=== PATIENT | female | born 1950 ===

== ENCOUNTER 2019-12-25 10:47 | Observation (INO) ==
[2019-12-25] MEDS ORDERED: 0.9 % SODIUM CHLORIDE 1,000 ML IV ONE ×3 (11:12→13:38)
--- NOTE | 2019-12-25 11:17 | Emergency Department Note ---
Weakness HPI General Chief complaint: Weakness Stated complaint: Decreased appetite, Decreased kidney function Time Seen by Provider: 12/25/19 10:56 Source: patient and family Mode of arrival: wheelchair Limitations: no limitations History of Present Illness HPI Narrative: Narrative: Patient is a 69-year-old female comes into the emergency department today with her niece. Patient reports that she has felt dehydrated, dizzy for about 1 week, generalized weakness, and fatigued. She has had weight loss over the last couple of months. She has been seen by her primary care provider, and her niece reports that her recent laboratory work at her PCP showed a decreased kidney function. Patient reports that she does not have any appetite and food does not taste well anymore. She has been drinking 2-3 8 ounce glasses of water a day. Patient reports that she does follow-up with neurologist, Dr. Summers in regards to memory loss. Patient has not had any headaches or confusion. Her niece reports that she is at her baseline mental status. She denies any fevers or chills. She denies any sore throat or dysphasia. She denies chest pain, shortness of breath, dyspnea on exertion, or cough. She has not had any abdominal pain, nausea, vomiting, diarrhea, melena, or hematochezia. Related Data Home Medications Medication Instructions Recorded Confirmed acetaminophen [Tylenol Extra 1,000 mg PO Q4HP PRN 12/25/19 12/25/19 Strength] levothyroxine 75 mcg PO DAILY 12/25/19 12/25/19 loperamide 2 mg PO PRN PRN 12/25/19 12/25/19 loratadine 10 mg PO DAILY PRN 12/25/19 12/25/19 memantine 10 mg PO BID 12/25/19 12/25/19 mirtazapine 15 mg PO HS 12/25/19 12/25/19 venlafaxine 125 mg PO DAILY 12/25/19 12/25/19 Allergies Allergy/AdvReac Type Severity Reaction Status Date / Time No Known Drug Allergies Allergy Verified 12/25/19 10:49 Review of Systems ROS Narrative: Narrative: Constitutional: Reports as per HPI, weakness and weight change; Denies fever and chills Eyes: Denies vision change ENT ED: Denies ear pain, throat pain and dysphagia Cardiovascular: Denies chest pain, palpitations, dyspnea on exertion and syncope Respiratory: Denies shortness of breath, cough and hemoptysis Gastrointestinal: Denies abdominal pain, nausea, vomiting, diarrhea, constipation, hematochezia, melena and hematemesis Genitourinary: Denies dysuria and frequency Musculoskeletal: Denies back pain and joint swelling Integumentary: Denies rash and lesions Neurological: Reports dizziness; Denies headache, weakness, numbness and paresthesias Psychiatric: Denies anxiety and depression Endocrine: Denies fatigue and heat or cold intolerance Hematological/Lymphatic: Denies easy bleeding, easy bruising and lymphadenopathy [facility] Narrative Patient History Narrative: Narrative: Medical/Surgical/Family History All Active Problems (Updated 12/25/19 @ 15:38 by OKSANA Westbrook) Fall (Acute) Contusion, lip (Acute) Contusion of lower limb, left (Acute) Contusion of lower limb, right (Acute) Cognitive dysfunction (Acute) Edema extremities (Acute) Hypothyroidism, acquired (Acute) Anemia (Acute) Acute kidney failure (Acute) Dehydration (Acute) Acute hypokalemia (Acute) Social History Smoking Status: Unknown if ever smoked Exam Narrative Narrative: Narrative: General Limitations: no limitations General appearance: alert, in no apparent distress and thin Head Head: atraumatic and normocephalic Eye Eye: Present normal appearance, PERRL and EOMI; Absent scleral icterus and conjunctival injection ENT ENT: Present normal oropharynx and mucous membranes dry; Absent nasal congestion Neck Neck: Present normal inspection, full ROM and trachea midline; Absent tenderness, lymphadenopathy and thyromegaly Chest Chest: Present normal inspection and symmetric chest wall rise Respiratory Respiratory: Present normal lung sounds bilaterally; Absent respiratory distress, wheezes, stridor, accessory muscle use and prolonged expiratory phase Cardiovascular Cardiovascular: Present regular rate, normal rhythm and systolic murmur; Absent diastolic murmur Adbominal Abdominal: Present soft and tenderness (All quadrants); Absent distention, rebound, rigidity, organomegaly and ascites Extremities Extremities: Present normal inspection, full ROM and normal capillary refill; Absent tenderness, pedal edema, pretibial edema and calf tenderness Back Back: Present normal inspection and full ROM; Absent tenderness Neurological Neurological: Present alert, CN II-XII intact, normal gait and other (Oriented to self and place.) Psychiatric Psychiatric: Present normal affect and normal mood Skin Skin: Present warm, dry and normal color Course Course Course Narrative: 1335 -patient currently drinking fluids at this time and receiving her second liter of normal saline. Bladder scan shows 38 cc in the bladder. She is not able to provide urine sample at this time. Spoke with Dr. Mondragon who is on-call for nephrology today. He will plan on swinging by and seeing the patient in the emergency department later after he is done at [facility]. I have ordered a renal ultrasound to be completed at this time. Patient is in no distress and currently sitting in the room T5. Vital Signs Vital signs: Vital Signs Temperature 98.1 F 12/25/19 10:50 Pulse Rate 65 12/25/19 10:50 Respiratory Rate 18 12/25/19 10:50 Blood Pressure 109/55 12/25/19 10:50 Pulse Oximetry (%) 98 12/25/19 10:50 Temperature 98.1 F 12/25/19 10:50 Pulse Rate 46 L 12/25/19 17:23 Respiratory Rate 18 12/25/19 17:23 Blood Pressure 122/50 12/25/19 17:23 Pulse Oximetry (%) 100 12/25/19 17:23 MDM MDM Narrative Medical decision making narrative: Narrative: Renal ultrasound does not show any major abnormality today. The abdominal x-ray shows normal amount of stool with no fecal impaction or any other abnormality. Patient's laboratory results today show the creatinine level at 1.8 and GFR of 28. Potassium low at 3.1 and replenished the potassium with 40 mEq of oral potassium today. She was given a total of 3 L of normal saline today for hydration. Dr. Mondragon had came to the emergency department and seen the patient today. Dr. Mondragon would like patient to be admitted for further evaluation and monitoring with IV fluid for hydration. Spoke with Dr. Fonseca at 1533, and Dr. Fonseca will accept patient for hospital admission for the acute renal failure and dehydration. Lab Data Lab results reviewed: Yes I reviewed the patient's lab results. Lab results narrative: Reviewed patient's previous laboratory results from December 21, 2019 that was done at [facility]: Creatinine was 2.0, GFR 24.85, BUN 7, AST 50, ALT 29, sodium 136, potassium 3.5, chloride 95, CO2: 22.8, glucose 81, calcium 10.1. TSH 1.588, magnesium 1.9, lipase 27, B12 706, vitamin D 11 which is low, TIBC normal, white blood cells 3.7, hemoglobin 14.3, hematocrit 41.4, platelets 134. Result diagrams: 12/25/19 11:15 12/25/19 11:15 Labs: Lab Results 12/25/19 12/25/19 12/25/19 Range/Units 11:15 11:15 11:15 WBC 4.0 L (4.50-11.00) K/mcL RBC 4.64 (3.59-5.38) M/mcL Hgb 14.3 (11.2-15.7) g/dL Hct 40.8 (34.1-44.9) % MCV 87.9 (80.0-100.0) fL MCH 30.8 (26.0-34.0) pg MCHC 35.0 (31.0-36.0) g/dL RDW 13.4 (11.5-14.5) % Plt Count 136 L (140-440) K/mcL MPV 10.7 H (7.4-10.4) fL Gran % 58.9 (38.0-78.0) % Lymph % (Auto) 30.3 (15.5-49.0) % [place] % (Auto) 9.3 (1.0-12.0) % Eos % (Auto) 1.0 (0.0-7.0) % Baso % (Auto) 0.5 (0.0-2.0) % Gran # 2.33 (1.80-8.00) K/mcL Lymph # (Auto) 1.20 L (1.50-4.80) K/mcL [place] # (Auto) 0.37 (0.10-0.90) K/mcL Eos # (Auto) 0.04 (0.00-0.70) K/mcL Baso # (Auto) 0.02 (0.00-0.30) K/mcL Sodium 134 (133-145) mmol/L Potassium 3.1 L (3.3-5.1) mmol/L Chloride 90 L (96-108) mmol/L Carbon Dioxide 21 L (22-30) mmol/L Anion Gap 23.0 H (8-16) BUN 20 (8-23) mg/dl Creatinine 1.8 H (0.6-1.1) mg/dl GFR Calculation 28 Glucose 78 (70-105) mg/dL Calcium 9.9 (8.6-10.4) mg/dl Total Bilirubin 2.0 H (0.0-1.0) mg/dL AST 50 H (0-37) U/l ALT 25 (0-40) U/l Alkaline Phosphatase 85 (39-117) U/L Total Protein 7.3 (5.9-8.4) gm/dL Albumin 4.5 (3.2-5.2) gm/dL Globulin 2.8 (2.2-3.7) gm/dL Albumin/Globulin Ratio 1.6 (1.0-2.3) Lipase 36 (7-60) U/L Vitamin B12 816.8 (232-1245) pg/ml Urine Color Urine Appearance Urine pH (5.0-9.0) Ur Specific [place] (1.000-1.035) Urine Protein (NEG) mg/dL Urine Glucose (UA) (NEG) mg/dL Urine Ketones (NEG) mg/dL Urine Occult Blood (<0.03) mg/dL Urine Nitrate (NEG) Urine Bilirubin (NEG) mg/dL Urine Urobilinogen (NEG) mg/dL Ur Leukocyte Esterase (NEG) /uL Urine RBC (0-1) /hpf Urine WBC (0-4) /hpf Ur Squamous Epith Cells (0-4) /hpf Urine Bacteria (0) /hpf Hyaline Casts (0-2) /lpf Urine Mucus (0) /hpf Ur Culture Indicated? 12/25/19 Range/Units 14:52 WBC (4.50-11.00) K/mcL RBC (3.59-5.38) M/mcL Hgb (11.2-15.7) g/dL Hct (34.1-44.9) % MCV (80.0-100.0) fL MCH (26.0-34.0) pg MCHC (31.0-36.0) g/dL RDW (11.5-14.5) % Plt Count (140-440) K/mcL MPV (7.4-10.4) fL Gran % (38.0-78.0) % Lymph % (Auto) (15.5-49.0) % [place] % (Auto) (1.0-12.0) % Eos % (Auto) (0.0-7.0) % Baso % (Auto) (0.0-2.0) % Gran # (1.80-8.00) K/mcL Lymph # (Auto) (1.50-4.80) K/mcL [place] # (Auto) (0.10-0.90) K/mcL Eos # (Auto) (0.00-0.70) K/mcL Baso # (Auto) (0.00-0.30) K/mcL Sodium (133-145) mmol/L Potassium (3.3-5.1) mmol/L Chloride (96-108) mmol/L Carbon Dioxide (22-30) mmol/L Anion Gap (8-16) BUN (8-23) mg/dl Creatinine (0.6-1.1) mg/dl GFR Calculation Glucose (70-105) mg/dL Calcium (8.6-10.4) mg/dl Total Bilirubin (0.0-1.0) mg/dL AST (0-37) U/l ALT (0-40) U/l Alkaline Phosphatase (39-117) U/L Total Protein (5.9-8.4) gm/dL Albumin (3.2-5.2) gm/dL Globulin (2.2-3.7) gm/dL Albumin/Globulin Ratio (1.0-2.3) Lipase (7-60) U/L Vitamin B12 (232-1245) pg/ml Urine Color Yellow Urine Appearance Clear Urine pH 6.0 (5.0-9.0) Ur Specific [place] 1.011 (1.000-1.035) Urine Protein 30 A (NEG) mg/dL Urine Glucose (UA) Negative (NEG) mg/dL Urine Ketones 20 A (NEG) mg/dL Urine Occult Blood Neg (<0.03) mg/dL Urine Nitrate Neg (NEG) Urine Bilirubin Neg (NEG) mg/dL Urine Urobilinogen Neg (NEG) mg/dL Ur Leukocyte Esterase 25 A (NEG) /uL Urine RBC 1 (0-1) /hpf Urine WBC 4 (0-4) /hpf Ur Squamous Epith Cells 1 (0-4) /hpf Urine Bacteria Few A (0) /hpf Hyaline Casts 15 H (0-2) /lpf Urine Mucus Few (0) /hpf Ur Culture Indicated? Yes EKG Data EKG #1: EKG attestation: Yes There are no EKG findings of acute coronary syndrome EKG shows normal: sinus rhythm Rate: normal Discharge Plan Patient/Caregiver Discharge Instructions Pt seen by GAME ROOM ATTENDANT/PA only: No Clinical Impression: Dehydration, Acute hypokalemia Acute kidney failure Qualifiers: Acute renal failure type: unspecified Qualified Code(s): N17.9 - Acute kidney failure, unspecified Patient Disposition: Xfer As Inpt ([facility]) Condition: Fair Discharge Date/Time: 12/25/19 17:27 Discharge Comment: admitted observation status
[2019-12-25 12:22] LABS: Basophils # (Auto) 0.02 K/mcL (0.00-0.30); Basophils % (Auto) 0.5 % (0.0-2.0); Eosinophils # (Auto) 0.04 K/mcL (0.00-0.70); Granulocytes % (Auto) 58.9 % (38.0-78.0); Hematocrit 40.8 % (34.1-44.9); Hemoglobin 14.3 g/dL (11.2-15.7); Lymphocytes % (Auto) 30.3 % (15.5-49.0); Mean Cell Volume 87.9 fL (80.0-100.0); Mean Platelet Volume 10.7 fL (7.4-10.4); Monocytes # (Auto) 0.37 K/mcL (0.10-0.90); Monocytes % (Auto) 9.3 % (1.0-12.0); Platelet Count 136 K/mcL (140-440); RBC 4.64 M/mcL (3.59-5.38); Red Cell Distribution Width 13.4 % (11.5-14.5)
[2019-12-25 12:50] LABS: ALT/SGPT 25 U/l (0-40); AST/SGOT 50 U/l (0-37); Albumin 4.5 gm/dL (3.2-5.2); Albumin/Globulin Ratio 1.6 (1.0-2.3); Alkaline Phosphatase 85 U/L (39-117); Blood Urea Nitrogen 20 mg/dl (8-23); Calcium 9.9 mg/dl (8.6-10.4); Carbon Dioxide 21 mmol/L (22-30); Globulin 2.8 gm/dL (2.2-3.7); Glomerular Filtration Rate 28; Glucose 78 mg/dL (70-105)
[2019-12-25 12:51] LABS: Chloride 90 mmol/L (96-108)
[2019-12-25] MEDS ORDERED: POTASSIUM CHLORIDE 20 MEQ TABLET PO ONE (12:56)
--- NOTE | 2019-12-25 15:17 | XRay Report ---
HISTORY: Abdominal pain, decreased appetite, decreased renal function FINDINGS: There is air in nondilated stomach, small and large intestine. There is no evidence of fecal impaction or bowel obstruction. No free intra-abdominal air is present. There is no apparent soft tissue mass or abnormal calcification. Arthritis is seen in the spine. There is an old mild compression fracture involving the superior endplate of L1. IMPRESSION: Normal exam Interpreted and Authenticated by: Sai Vazquez 12/25/19
--- NOTE | 2019-12-25 15:19 | Ultrasound Report ---
History: Acute kidney injury FINDINGS: The right kidney measures 4.2 x 4.7 x 10.2 cm left measures 4.1 x 4.7 x 10.4 cm. The cortex is normal thickness and echogenicity bilaterally. There is no evidence of a mass, cyst, calculus or hydronephrosis in either kidney. Doppler shows flow urine through the left ureter into the bladder but we were unable to document flow in the right side. The patient had not been well hydrated prior to the exam. Before voiding the bladder contained 77 cc of urine and has a smooth wall with no intraluminal filling defects. The patient was unable to void. IMPRESSION: Anatomically normal kidneys Diminished urine output on the right side Interpreted and Authenticated by: Sai Vazquez 12/25/19
--- NOTE | 2019-12-25 15:31 | Internal Med History&Physical ---
HPI History of Present Illness Patient information: Note initiated : 12/25/19 at 3:27 pm Service Date, if different from initiated Date: [12/25/2019] Patient: Christina Lopez a 69 y/o F admitted on for Decreased appetite, Decreased kidney function. Chief Complaint: [Dehdration and ARF] History of present illness: Ms. Lopez is a 69 year old F with a PMHx of HTN, Hypothyroidism and dementia who was brought to the ED by her neice (Radha) after months of failure to thrive. The patient lives at home with a caregiver who checks in on her but the patient is to the point that she is no longer eating or drinking such that she is now dehyrated with ARF. This was noted by recent blood work at [facility] [place] [place] and confirmed here. SCr baseline was 0.8 mg/dl in Apr 2017 with a U/A showing a concentrated sample with 2+ proteinuria. Currently her serum creatinine is in the 1.8-2.2 range shows for the past 48 hours in the setting of poor p.o. intake. While this is significantly worse than her prior GFR, I doubt this is a significant component to her failure to thrive and altered mentation. Despite being bradycardic and with signs of obvious dementia her TSH level is currently normal. She will be hospitalized for IV volume repletion as this may be a component of her decline in GFR as well as electrolyte replacement and further work-up to see if there is a reversible component to her dementia beyond hypothyroidism and probable depression in the elderly. It is unlikely that this patient will be able to be discharged to the home setting and should be considered for placement in a penitentiary as she is no longer safe to live at home according to my history and that of information provided by both the patient and her niece. Review of Systems ROS unobtainable: due to mental status All systems: reviewed and no additional remarkable complaints except as stated Constitutional Constitutional: Present anorexia, fatigue, lethargy and weakness; Absent fever(s) EENT Eyes: Present as per HPI Cardiovascular Cardiovascular: Present slow heart rate; Absent chest pain, leg edema, orthopnea and pedal edema Respiratory Respiratory: Absent cough, dyspnea, hemoptysis and wheezing Gastrointestinal Gastrointestinal: Present as per HPI; Absent abdominal pain, diarrhea, dysphagia, loose stools, nausea and vomiting Genitourinary Genitourinary: Present as per HPI Musculoskeletal Musculoskeletal: Present as per HPI Integumentary Integumentary: Present as per HPI and dry skin Neurological Neurological: Present as per HPI, confusion, memory loss and weakness Psychiatric Psychiatric: Present as per HPI, abnormal sleep pattern, confusion, depression, difficulty concentrating, hopelessness and memory loss Endocrine Endocrine: Present cold intolerance Hematologic/Lymphatic Hematologic/Lymphatic: Present as per HPI Allergic/Immunologic Allergic/Immunologic: Present as per HPI PFSH PFSH Social History (Updated 12/25/19 @ 15:58 by Ras Fonseca DO) smoking status: Never smoker additional history: Past medical history: Cognitive decline versus dementia, follows with Dr. Summers Past surgical history: None Family: Mother had colon cancer and some psychiatric issues Father was healthy other than prostate cancer Social history: Patient denies tobacco she has 1 glass of wine a night Lives by herself with family coming in to help and care for her. MEDS/ALLERGIES Home Medications and Allergies Home Medications Medication Instructions Recorded Confirmed Type acetaminophen [Tylenol Extra 1,000 mg PO Q4HP PRN 12/25/19 12/25/19 History Strength] levothyroxine 75 mcg PO DAILY 12/25/19 12/25/19 History loperamide 2 mg PO PRN PRN 12/25/19 12/25/19 History loratadine 10 mg PO DAILY PRN 12/25/19 12/25/19 History memantine 10 mg PO BID 12/25/19 12/25/19 History mirtazapine 15 mg PO HS 12/25/19 12/25/19 History venlafaxine 225 mg PO DAILY 12/25/19 12/25/19 History Allergies Allergy/AdvReac Type Severity Reaction Status Date / Time No Known Drug Allergies Allergy Verified 12/25/19 10:49 EXAM Constitutional Vitals: Temp Pulse Resp BP Pulse Ox 36.7 C 46 L 18 115/47 100 12/25/19 10:50 12/25/19 15:01 12/25/19 10:50 12/25/19 15:01 12/25/19 15:01 Head Head exam: Present atraumatic and normocephalic Eye Eye exam: Present EOMI, normal appearance and PERRL Pupils: Present PERRL ENT ENT exam: Present mucous membranes dry Neck Neck exam: Present full ROM and normal inspection; Absent thyromegaly Respiratory Respiratory exam: Present normal respiratory exam and CTAB Cardiovascular Cardiovascular exam: Present normal rate and rhythm, bradycardia, +S1 and +S2; A bsent gallop, JVD and rubs GI/Abdominal GI/Abdominal exam: Present normal bowel sounds and soft; Absent bruit Rectal Rectal exam: Present deferred Extremities Exam Extremities exam: Present full ROM, normal inspection and neurovascular intact; Absent calf tenderness, pedal edema and tenderness Back Exam Back exam: Absent CVA tenderness (L), CVA tenderness (R) and tenderness Neurological Exam Neurological exam: Present alert, CN II-XII intact and motor sensory deficit; Absent oriented X3 Expanded Neurological Exam Neurological exam: Present memory loss-recent event; Absent expressive aphasia and memory loss-remote event Patient oriented to: Present person Psychiatric Psychiatric exam: Present depressed and flat affect Expanded Psychiatric Exam Focused psych exam: Present loose associations and perseverating Skin Skin exam: Present dry DATA Data Completed and Pending Labs on day of discharge: Labs from last 24 hours 12/25/19 12/25/19 12/25/19 14:52 11:15 11:15 WBC RBC Hgb Hct MCV MCH MCHC RDW Plt Count MPV Gran % Lymph % (Auto) [place] % (Auto) Eos % (Auto) Baso % (Auto) Gran # Lymph # (Auto) [place] # (Auto) Eos # (Auto) Baso # (Auto) Sodium 134 Potassium 3.1 L Chloride 90 L Carbon Dioxide 21 L Anion Gap 23.0 H BUN 20 Creatinine 1.8 H GFR Calculation 28 Glucose 78 Calcium 9.9 Total Bilirubin 2.0 H AST 50 H ALT 25 Alkaline Phosphatase 85 Total Protein 7.3 Albumin 4.5 Globulin 2.8 Albumin/Globulin Ratio 1.6 Lipase 36 Vitamin B12 816.8 Urine Color Pending Urine Appearance Pending Urine pH Pending Ur Specific [place] Pending Urine Protein Pending Urine Glucose (UA) Pending Urine Ketones Pending Urine Occult Blood Pending Urine Nitrate Pending Urine Bilirubin Pending Urine Urobilinogen Pending Ur Leukocyte Esterase Pending 12/25/19 11:15 WBC 4.0 L RBC 4.64 Hgb 14.3 Hct 40.8 MCV 87.9 MCH 30.8 MCHC 35.0 RDW 13.4 Plt Count 136 L MPV 10.7 H Gran % 58.9 Lymph % (Auto) 30.3 [place] % (Auto) 9.3 Eos % (Auto) 1.0 Baso % (Auto) 0.5 Gran # 2.33 Lymph # (Auto) 1.20 L [place] # (Auto) 0.37 Eos # (Auto) 0.04 Baso # (Auto) 0.02 Sodium Potassium Chloride Carbon Dioxide Anion Gap BUN Creatinine GFR Calculation Glucose Calcium Total Bilirubin AST ALT Alkaline Phosphatase Total Protein Albumin Globulin Albumin/Globulin Ratio Lipase Vitamin B12 Urine Color Urine Appearance Urine pH Ur Specific [place] Urine Protein Urine Glucose (UA) Urine Ketones Urine Occult Blood Urine Nitrate Urine Bilirubin Urine Urobilinogen Ur Leukocyte Esterase A/P Assessment and plan (1) Acute kidney failure: Assessment and plan: 1. U/S unremarkable 2. Check FeNa and trend SCr Status: Acute Comment: Presumed volume depletion +/- renal hypoperfusion due to bradycardia and decreased CO Qualifiers: Acute renal failure type: unspecified Qualified Code(s): N17.9 - Acute kidney failure, unspecified (2) Bradycardia with 41-50 beats per minute: Assessment and plan: 1. Avoid cholinergic Rx for dementia 2. Check FeNa 3. If no increase in HR, may need pacemaker arline if FeNa low as both GFR and mentation may be due to decreased organ perfusion. 4. TSH is WNL so doubt hypothyroidism Status: Chronic (3) Acute hypokalemia: Assessment and plan: 1. Check TTKG and Mag level Status: Acute Comment: Assume poor po intake, no Hx of GI K losses (4) Cognitive dysfunction: Status: Chronic Comment: Progressive dementia with hypothyroidism on replacemt therapy and nl B12 levels. Brasycardia may have a causative role. Will likely need terminologist placement for safety. Narrative A/P Narrative: Narrative: 1. ARF in setting of dehydration, bradycardia and marginal BP * Normal Renal U/S * Review urinalysis * Due to age check SPEP, UPEP and IF * Hydrate * Trend SCr 2. Hypokalemia * Check serum Mg * Check TTKG * PO repletion 3. Bradycardia * No "easy fix" as not on Cholinergic Rx for dementia * If FeNa is low, this argues for renal hypoperfusion and opens the possibilty of [employer] hypoperfusion as well * Elective PPM??? 4. Dementia * Labs for dementia * Decrease Psychoactive Rx with the exception of NMDA antgonist. Time Spent With Patient Time: Total time spent is greater than 50% in coordination of care (as documented) at patient's floor/unit and/or counseling patient: Total time spent with greater than 50% in coordination of care (as documented) at patient's floor/unit and/or counseling patient:: Greater than 35 minutes
[2019-12-25 15:52] LABS: Appearance,Urine CLEAR; Bacteria,Urine FEW /hpf (0); Bilirubin,Urine NEG (NEG); Color,Urine YELLOW; Culture Indicated,Urine YES; Glucose,Urine (UA) NEGATIVE (NEG); Ketones,Urine 20 mg/dL (NEG); Leukocyte Esterase,Urine 25 /uL (NEG); Mucus,Urine FEW /hpf (0); Nitrate,Urine NEG (NEG); Protein,Urine 30 mg/dL (NEG); Specific Gravity,Urine 1.011 (1.000-1.035); Urine Blood NEG mg/dL (<0.03); Urine Hyaline Cast 15 /lpf (0-2); Urine RBC 1 /hpf (0-1); Urine Squamous Epithelial Cell 1 /hpf (0-4); Urine WBC 4 /hpf (0-4); Urobilinogen,Urine NEG (NEG)
--- NOTE | 2019-12-25 16:01 | Internal Med History&Physical ---
HPI History of Present Illness Patient information: Note initiated : 12/25/19 at 3:53 pm Service Date, if different from initiated Date: [] Patient: Christina Lopez a 69 y/o F admitted on for Decreased appetite, Decreased kidney function. Chief Complaint: [] History of present illness: Ms. Lopez is a 69 year old F Presents the ED with her knee for failure to thrive. Patient was at [facility] independent living for 2 and half years and then earlier this year because of memory issues they wanted to move her to the other side for closer watch however her niece says this was with a nonfunctional patients and they did not want to do this. Patient then went home and live by herself but did have family to come and help her. She seemed to be doing okay with family support till about 3 weeks ago where she seems to have been in decline. She is had decreased interest in any activity, she had decreased appetite, and family has been trying to get in her into [facility] assisted living facility but that has been a prolonged process. Over the past several days she is becoming more weak and lightheaded and more difficult to take care of her. She had kidney function testing which showed acute kidney injury. In the ED she was evaluated and found to have a creatinine of 1.8. Hypochloremia and hypokalemia. Quality Lab Technician evaluated the patient in the ED as well. Patient given several liters of fluid. Ultrasound unremarkable. Urinalysis pending. UTI several weeks ago. Review of Systems: Positive as above. Denies headache/fever/chills/nausea/vomiting/chest or abdominal pain/cough/dyspnea/diarrhea. Remaining 10 point review of system reviewed negative PFSH PFS Social History (Updated 12/25/19 @ 15:58 by Ras Fonseca DO) smoking status: Unknown if ever smoked additional history: Past medical history: Cognitive decline versus dementia, follows with Dr. Summers Past surgical history: None Family: Mother had colon cancer and some psychiatric issues Father was healthy other than prostate cancer Social history: Patient denies tobacco she has 1 glass of wine a night Lives by herself with family coming in to help and care for her. MEDS/ALLERGIES Home Medications and Allergies Home Medications Medication Instructions Recorded Confirmed Type acetaminophen [Tylenol Extra 1,000 mg PO Q4HP PRN 12/25/19 12/25/19 History Strength] levothyroxine 75 mcg PO DAILY 12/25/19 12/25/19 History loperamide 2 mg PO PRN PRN 12/25/19 12/25/19 History loratadine 10 mg PO DAILY PRN 12/25/19 12/25/19 History memantine 10 mg PO BID 12/25/19 12/25/19 History mirtazapine 15 mg PO HS 12/25/19 12/25/19 History venlafaxine 125 mg PO DAILY 12/25/19 12/25/19 History Allergies Allergy/AdvReac Type Severity Reaction Status Date / Time No Known Drug Allergies Allergy Verified 12/25/19 10:49 EXAM Constitutional Vitals: Temp Pulse Resp BP Pulse Ox 98.1 F 46 L 18 119/60 100 12/25/19 10:50 12/25/19 15:01 12/25/19 10:50 12/25/19 15:31 12/25/19 15:01 Exam: General: Alert, Awake, No acute Distress Eyes/N/T: EOMI, PERRL, dry MM Head/Neck: neck supple, normocephalic atraumatic CV: RRR, No murmurs, normal s1/s2 Pulm: Clear b/l, no wheezing/rhonchi/rales Abd: soft, nontender, +BS x4 Ext: no clubbing/cyanosis/edema Neuro: Alert, no focal deficits, moves all extremities, CN 2-12 grossly intact, symmetrical strength b/l upper/lower, sensations intact b/l upper/lower Skin: warm/dry DATA Data Completed and Pending Labs on day of discharge: Labs from last 24 hours 12/25/19 12/25/19 12/25/19 14:52 11:15 11:15 WBC RBC Hgb Hct MCV MCH MCHC RDW Plt Count MPV Gran % Lymph % (Auto) [place] % (Auto) Eos % (Auto) Baso % (Auto) Gran # Lymph # (Auto) [place] # (Auto) Eos # (Auto) Baso # (Auto) Sodium 134 Potassium 3.1 L Chloride 90 L Carbon Dioxide 21 L Anion Gap 23.0 H BUN 20 Creatinine 1.8 H GFR Calculation 28 Glucose 78 Calcium 9.9 Total Bilirubin 2.0 H AST 50 H ALT 25 Alkaline Phosphatase 85 Total Protein 7.3 Albumin 4.5 Globulin 2.8 Albumin/Globulin Ratio 1.6 Lipase 36 Vitamin B12 816.8 Urine Color Yellow Urine Appearance Clear Urine pH 6.0 Ur Specific [place] 1.011 Urine Protein 30 A Urine Glucose (UA) Negative Urine Ketones 20 A Urine Occult Blood Neg Urine Nitrate Neg Urine Bilirubin Neg Urine Urobilinogen Neg Ur Leukocyte Esterase 25 A Urine RBC 1 Urine WBC 4 Ur Squamous Epith Cells 1 Urine Bacteria Few A Hyaline Casts 15 H Urine Mucus Few Ur Culture Indicated? Yes 12/25/19 11:15 WBC 4.0 L RBC 4.64 Hgb 14.3 Hct 40.8 MCV 87.9 MCH 30.8 MCHC 35.0 RDW 13.4 Plt Count 136 L MPV 10.7 H Gran % 58.9 Lymph % (Auto) 30.3 [place] % (Auto) 9.3 Eos % (Auto) 1.0 Baso % (Auto) 0.5 Gran # 2.33 Lymph # (Auto) 1.20 L [place] # (Auto) 0.37 Eos # (Auto) 0.04 Baso # (Auto) 0.02 Sodium Potassium Chloride Carbon Dioxide Anion Gap BUN Creatinine GFR Calculation Glucose Calcium Total Bilirubin AST ALT Alkaline Phosphatase Total Protein Albumin Globulin Albumin/Globulin Ratio Lipase Vitamin B12 Urine Color Urine Appearance Urine pH Ur Specific [place] Urine Protein Urine Glucose (UA) Urine Ketones Urine Occult Blood Urine Nitrate Urine Bilirubin Urine Urobilinogen Ur Leukocyte Esterase Urine RBC Urine WBC Ur Squamous Epith Cells Urine Bacteria Hyaline Casts Urine Mucus Ur Culture Indicated? A/P Narrative A/P Narrative: A: *JENNIFER: *Hypokalemia/Hypochloremia: *FTT/generalized weakness/deconditioning: -Family has been trying to get her into an [facility] recently *Cognitive decline versus dementia: Follows with Dr. Summers *Hypothyroidism: *Depression/Anxiety: Effexor * P: -IVF's -Nephrology following -check TSH -Electrolyte replacement as needed -monitor uop -PT/OT -CM for placement -ppx: lovenox DNR Time Spent With Patient Time: Total time spent is greater than 50% in coordination of care (as documented) at patient's floor/unit and/or counseling patient:
[2019-12-25] MEDS ORDERED: SENNOSIDES 1 TABLET PO PRN (17:20)
[2019-12-25] MEDS ORDERED: ONDANSETRON 4 MG/2 ML VIAL IV PRN (17:20)
[2019-12-25] MEDS ORDERED: POTASSIUM CHLORIDE 20 MEQ TABLET PO PRN (17:20)
[2019-12-25] MEDS ORDERED: MAGNESIUM SULFATE 2 GM/50 ML BAG IV PRN (17:20)
[2019-12-25] MEDS ORDERED: POLYETHYLENE GLYCOL 3350 17 GM PACKET PO PRN (17:20)
[2019-12-25] MEDS ORDERED: LORATADINE 10 MG PO PRN (17:20)
[2019-12-25] MEDS ORDERED: POTASSIUM CHLORIDE 40 MEQ in DEXTROSE 5% IN WATER 500 ML IV PRN (17:20)
[2019-12-25] MEDS ORDERED: IPRATROPIUM/ALBUTEROL 3 ML AMPUL.NEB NEB PRN (17:20)
[2019-12-25] MEDS ORDERED: LOPERAMIDE (PP) 2MG TABLET (#12) PO PRN (17:20)
[2019-12-25] MEDS ORDERED: ACETAMINOPHEN 500 MG TABLET PO PRN (17:20)
[2019-12-25] MEDS: 0.9 % SODIUM CHLORIDE 1,000 ML IV SCH (17:50)
[2019-12-25] MEDS ORDERED: LOPERAMIDE 2 MG CAPSULE PO PRN (18:28)
[2019-12-25] MEDS ORDERED: LORATADINE 10 MG TABLET PO PRN (18:30)
[2019-12-25] MEDS ORDERED: MIRTAZAPINE 15 MG TABLET PO SCH (21:00)
[2019-12-25] MEDS: DOCUSATE SODIUM 100 MG CAPSULE PO SCH (21:14)
[2019-12-25] MEDS: MEMANTINE 10 MG TABLET PO SCH (21:14)
[2019-12-25] MEDS: 0.9 % SODIUM CHLORIDE 10 ML SYRINGE IV SCH (21:16)
[2019-12-26 00:25] LABS: Potassium,Urine Random 7.8 mmol/L
[2019-12-26] MEDS: 0.9 % SODIUM CHLORIDE 10 ML SYRINGE IV SCH ×3 (04:13→20:53)
[2019-12-26] MEDS: LEVOTHYROXINE 75 MCG TABLET PO SCH (07:04)
[2019-12-26 07:19] LABS: Basophils # (Auto) 0.02 K/mcL (0.00-0.30); Basophils % (Auto) 0.6 % (0.0-2.0); Eosinophils # (Auto) 0.03 K/mcL (0.00-0.70); Eosinophils % (Auto) 0.9 % (0.0-7.0); Granulocytes % (Auto) 64.9 % (38.0-78.0); Hematocrit 36.8 % (34.1-44.9); Hemoglobin 12.4 g/dL (11.2-15.7); Lymphocytes # (Auto) 0.76 K/mcL (1.50-4.80); Lymphocytes % (Auto) 23.9 % (15.5-49.0); Mean Cell Volume 90.2 fL (80.0-100.0); Mean Corpuscular HGB Conc 33.7 g/dL (31.0-36.0); Mean Platelet Volume 9.9 fL (7.4-10.4); Monocytes # (Auto) 0.31 K/mcL (0.10-0.90); Monocytes % (Auto) 9.7 % (1.0-12.0); Platelet Count 99 K/mcL (140-440); RBC 4.08 M/mcL (3.59-5.38); Red Cell Distribution Width 13.7 % (11.5-14.5); WBC 3.2 K/mcL (4.50-11.00)
--- NOTE | 2019-12-26 07:27 | Internal Med Progress Note ---
SUBJECTIVE Subjective Patient information: Note initiated : 12/26/19 at 7:24 am Service Date, if different from initiated Date: [] Patient: Christina Lopez a 69 y/o F admitted on 12/25/19 for Decreased appetite, Decreased kidney function. Chief Complaint: [] Interval history: Ms. Lopez is a 69 year old F Presents the ED with her knee for failure to thrive. Patient was at [facility] independent living for 2 and half years and then earlier this year because of memory issues they wanted to move her to the other side for closer watch however her niece says this was with a nonfunctional patients and they did not want to do this. Patient then went home and live by herself but did have family to come and help her. She seemed to be doing okay with family support till about 3 weeks ago where she seems to have been in decline. She is had decreased interest in any activity, she had decreased appetite, and family has been trying to get in her into [facility] assisted living facility but that has been a prolonged process. Over the past several days she is becoming more weak and lightheaded and more difficult to take care of her. She had kidney function testing which showed acute kidney injury. In the ED she was evaluated and found to have a creatinine of 1.8. Hypochloremia and hypokalemia. Brake Tester evaluated the patient in the ED as well. Patient given several liters of fluid. Ultrasound unremarkable. Urinalysis pending. UTI several weeks ago. 7/6 Slept well. Weakness improving some. No other complaints. Creatinine im proving. Review of Systems: denies headache/fever/chills/nausea/vomiting/chest or abdominal pain/co ugh/dyspnea/diarrhea. Otherwise see above. Constitutional Vitals: Vital Signs Temp Pulse Resp BP Pulse Ox 98.5 F 53 L 18 99/54 99 12/26/19 07:12 12/26/19 07:12 12/26/19 07:12 12/26/19 07:12 12/26/19 07:12 Period Temp Pulse Resp BP Sys/Gray Pulse Ox Last 24 Hr 97.3 F-99.4 F 42-65 16-18 99-128/47-60 98-100 Intake and Output 12/25/19 12/26/19 12/26/19 21:59 05:59 13:59 Intake Total 1000 150 Output Total 400 Balance 1000 -250 Weight 54.119 kg Intake & Output: Intake & Output 12/25/19 12/26/19 12/26/19 21:59 05:59 13:59 Intake Total 1000 150 Output Total 400 Balance 1000 -250 Weight 54.119 kg Intake: IV 1000 Sodium Chloride 0.9% 1,000 ml @ 1000 Wide Open IV BOLUS ONE Rx#: [id number] Oral 150 Output: Void Amount 400 Other: Urine Appearance Clear Urine Color Dark Yellow Stool Size Small Stool Color Brown Stool Consistency Soft # Voids 2 # Bowel Movements 1 Exam: General: Alert, Awake, No acute Distress Eyes/N/T: EOMI, Head/Neck: neck supple, CV: RRR, No murmurs, Pulm: Clear b/l, no wheezing/rhonchi/rales Abd: soft, nontender, +BS x4 Ext: no clubbing/cyanosis/edema Neuro: Alert, no focal deficits, moves all extremities, Skin: warm/dry OBJ DATA Labs CBC & Chem 7: 12/26/19 06:25 12/26/19 06:25 Labs: Abnormal Lab Results 12/26/19 12/25/19 12/25/19 06:25 14:52 11:15 WBC 3.2 L Plt Count 99 L MPV Lymph # (Auto) 0.76 L Potassium 3.1 L Chloride 90 L Carbon Dioxide 21 L Anion Gap 23.0 H Creatinine 1.8 H Total Bilirubin 2.0 H AST 50 H Urine Protein 30 A Urine Ketones 20 A Ur Leukocyte Esterase 25 A Urine Bacteria Few A Hyaline Casts 15 H 12/25/19 11:15 WBC 4.0 L Plt Count 136 L MPV 10.7 H Lymph # (Auto) 1.20 L Potassium Chloride Carbon Dioxide Anion Gap Creatinine Total Bilirubin AST Urine Protein Urine Ketones Ur Leukocyte Esterase Urine Bacteria Hyaline Casts Meds: Medications Acetaminophen (Tylenol) 1,000 mg PO Q4HP PRN; Protocol PRN Reason: Pain, Moderate Albuterol/Ipratropium (Duoneb) 3 ml NEB Q4HP PRN PRN Reason: Shortness Of Breath Docusate Sodium (Colace) 100 mg PO BID [facility] Last Admin: 12/25/19 21:14 Dose: Not Given Documented by: Enoxaparin Sodium (Lovenox) 30 mg SQ DAILY [facility] Potassium Chloride 40 meq/ (Dextrose) 520 mls @ 130 mls/hr IV UD PRN PRN Reason: Potassium < 3 Magnesium Sulfate (Magnesium Sulfate) 2 gm in 50 mls @ 50 mls/hr IV UD PRN PRN Reason: Magnesium </= 1.6 Sodium Chloride (Sodium Chloride 0.9%) 1,000 mls @ 75 mls/hr IV .[id number] [facility] Stop: 12/26/19 19:59 Last Admin: 12/25/19 17:50 Dose: 75 mls/hr Documented by: Levothyroxine Sodium (Synthroid) 75 mcg PO ACB [facility] Last Admin: 12/26/19 07:04 Dose: 75 mcg Documented by: Memantine (Namenda) 5 mg PO BID [facility] Last Admin: 12/25/19 21:14 Dose: 5 mg Documented by: Mirtazapine (Remeron) 7.5 mg PO HS [facility] Ondansetron HCl (Zofran) 4 mg IV Q4HP PRN PRN Reason: Nausea And Vomiting Polyethylene Glycol (Miralax) 17 gm PO DAILYP PRN PRN Reason: Constipation Potassium Chloride (Kdur) 40 meq PO UD PRN PRN Reason: Potassium < 3 Senna (Senokot) 2 tab PO DAILYP PRN PRN Reason: Constipation Sodium Chloride (Saline Flush) 10 ml IV Q8 [facility] Last Admin: 12/26/19 04:13 Dose: Not Given Documented by: Venlafaxine HCl (Effexor Xr) 75 mg PO DAILY [facility] A/P Narrative A/P Narrative: A: *JENNIFER: prerenal -improving *Hypokalemia/Hypochloremia: improving *FTT/generalized weakness/deconditioning: -Family has been trying to get her into an [facility] recently *Cognitive Impairment vs dementia: Follows with Dr. Summers *Hypothyroidism: tsh wnl *Depression/Anxiety: Effexor * P: -IVF's -Nephrology following -Electrolyte replacement as needed -monitor uop -PT/OT -CM for placement -obs status -ppx: lovenox DNR Time Spent With Patient Time: Total time spent is greater than 50% in coordination of care (as documented) at patient's floor/unit and/or counseling patient: QUALITY VTE Deep Vein Thrombosis/Pulmonary Embolism Present on Admission: No
[2019-12-26 07:39] LABS: ALT/SGPT 19 U/l (0-40); AST/SGOT 39 U/l (0-37); Albumin 3.3 gm/dL (3.2-5.2); Alkaline Phosphatase 64 U/L (39-117); Bilirubin,Direct 0.6 mg/dL (0.0-0.3); Bilirubin,Total 1.4 mg/dL (0.0-1.0); Blood Urea Nitrogen 13 mg/dl (8-23); Calcium 8.4 mg/dl (8.6-10.4); Carbon Dioxide 17 mmol/L (22-30); Glucose 56 mg/dL (70-105); Lactate Dehydrogenase 137 U/L (94-250); Phosphorous 2.5 mg/dL (2.7-4.5); Triglycerides 99 mg/dl (<150); Uric Acid 8.2 mg/dL (2.5-8.0)
[2019-12-26 07:41] LABS: Albumin/Globulin Ratio 1.7 (1.0-2.3); Chloride 103 mmol/L (96-108); Glomerular Filtration Rate 39
[2019-12-26 07:54] LABS: Folate 4.8 ng/mL (4.2-19.9)
[2019-12-26] MEDS ORDERED: VENLAFAXINE 37.5 MG TAB.ER.24H PO SCH (09:00)
--- NOTE | 2019-12-26 09:29 | Nephrology Progress Note ---
SUBJECTIVE Subjective Patient information: Note initiated : 12/26/19 at 9:22 am Service Date, if different from initiated Date: [] Patient: Christina Lopez 69 y/o F admitted on 12/25/19 for Decreased appetite, Decreased kidney function. Chief Complaint: [] Interval history: Narrative: Scr trending down. UOP noted. BP 99/54-120s/50s. bradycardia persists. I/O 3L/ 400cc Constitutional Vitals: Vital Signs Temp Pulse Resp BP Pulse Ox 36.9 C 53 L 18 99/54 99 12/26/19 07:12 12/26/19 07:12 12/26/19 07:12 12/26/19 07:12 12/26/19 07:12 Period Temp Pulse Resp BP Sys/Gray Pulse Ox Last 24 Hr 36.3 C-37.4 C 42-65 16-18 99-128/47-60 98-100 Intake and Output 12/25/19 12/26/19 12/26/19 21:59 05:59 13:59 Intake Total 1000 150 Output Total 400 Balance 1000 -250 Weight 54.119 kg Intake & Output: Intake & Output 12/25/19 12/26/19 12/26/19 21:59 05:59 13:59 Intake Total 1000 150 Output Total 400 Balance 1000 -250 Weight 54.119 kg Intake: IV 1000 Sodium Chloride 0.9% 1,000 ml @ 1000 Wide Open IV BOLUS ONE Rx#: [id number] Oral 150 Output: Void Amount 400 Other: Urine Appearance Clear Urine Color Dark Yellow Stool Size Small Stool Color Brown Stool Consistency Soft # Voids 2 # Bowel Movements 1 Head Head exam: Present atraumatic and normal inspection Additional findings Additional findings: HEENT: nc, at, non icteric sclerae reps: on room air, non labored respirations, CTAB cardiovasc RRR, present peripheral puises, no edema neuro: alert, clear speech A/P Assessment and plan (1) JENNIFER (acute kidney injury): Status: Acute Narrative A/P Narrative: SCR down to 1.4. It was 1.8 on the day of admission 12/25/2019. Uncertain baseline as the SCR available was 0.8 in 2017. 12/25/2019UA positive protein, ketones, 15 hyaline casts. Urine osmolality 147, urine random potassium 7.8. The patient had proteinuria in 2017 12/25/2019 PARK, SSA, anti-Taylor, scleroderma, C3, C4 pending. 07/11/2019 renal ultrasound R 10.2, L 10.4. Cortex normal thickness and echogenicity. Before voiding 77 cc of urine in the bladder, patient was unable to void. *continue strict I/O, avoid nephrotoxins *can use LR for maintenance lfuid 1ml/kg/hr *am rfp acid-base Bicarbonate 17. within the limitation of no blood gas, metabolic acidosis 2/2 JENNIFER bone-mineral metabolism Calcium 8.4, phosphorus 2.5 (mild hypophosphatemia), magnesium within lab reference range 1.7. *Hopefully phosphorus can improve with increased p.o. intake. If not better by tomorrow, we will replete BUN/ K 13/3.7 hematologic hemoglobin 12.4, within lab reference range. Leukopenia/[id number]-[id number]-ap/management per primary team Folate 4.8, vitamin B12 706 *Start folic acid replacement Time Spent With Patient Time: Total time spent is greater than 50% in coordination of care (as documented) at patient's floor/unit and/or counseling patient: Total time spent with greater than 50% in coordination of care (as documented) at patient's floor/unit and/or counseling patient:: 25 - 35 minutes
[2019-12-26] MEDS: VENLAFAXINE 75 MG CAP.XL.24H PO SCH (09:46)
[2019-12-26] MEDS: MEMANTINE 10 MG TABLET PO SCH ×2 (09:46→20:52)
[2019-12-26] MEDS: 0.9 % SODIUM CHLORIDE 1,000 ML IV SCH (09:46)
[2019-12-26] MEDS: ENOXAPARIN 30 MG/0.3 ML SYRINGE SQ SCH (09:46)
[2019-12-26] MEDS: DOCUSATE SODIUM 100 MG CAPSULE PO SCH ×2 (09:46→20:52)
[2019-12-26] MEDS ORDERED: MIRTAZAPINE 15 MG TABLET PO SCH (21:00)
[2019-12-27] MEDS: 0.9 % SODIUM CHLORIDE 10 ML SYRINGE IV SCH ×2 (05:56→14:46)
[2019-12-27 06:35] LABS: Basophils # (Auto) 0.02 K/mcL (0.00-0.30); Basophils % (Auto) 0.7 % (0.0-2.0); Eosinophils # (Auto) 0.04 K/mcL (0.00-0.70); Eosinophils % (Auto) 1.4 % (0.0-7.0); Granulocytes % (Auto) 60.9 % (38.0-78.0); Lymphocytes # (Auto) 0.77 K/mcL (1.50-4.80); Lymphocytes % (Auto) 26.4 % (15.5-49.0); Mean Corpuscular HGB Conc 33.3 g/dL (31.0-36.0); Mean Platelet Volume 10.7 fL (7.4-10.4); Monocytes # (Auto) 0.31 K/mcL (0.10-0.90); Monocytes % (Auto) 10.6 % (1.0-12.0); Platelet Count 103 K/mcL (140-440); Red Cell Distribution Width 13.7 % (11.5-14.5); WBC 2.9 K/mcL (4.50-11.00)
[2019-12-27 06:53] LABS: ALT/SGPT 19 U/l (0-40); AST/SGOT 37 U/l (0-37); Albumin 3.4 gm/dL (3.2-5.2); Albumin/Globulin Ratio 1.6 (1.0-2.3); Alkaline Phosphatase 56 U/L (39-117); Bilirubin,Direct 0.5 mg/dL (0.0-0.3); Bilirubin,Total 1.1 mg/dL (0.0-1.0); Blood Urea Nitrogen 9 mg/dl (8-23); Calcium 8.8 mg/dl (8.6-10.4); Carbon Dioxide 19 mmol/L (22-30); Chloride 104 mmol/L (96-108); Globulin 2.1 gm/dL (2.2-3.7); Glomerular Filtration Rate 46; Glucose 66 mg/dL (70-105); Lactate Dehydrogenase 150 U/L (94-250); Phosphorous 2.5 mg/dL (2.7-4.5); Triglycerides 92 mg/dl (<150); Uric Acid 7.1 mg/dL (2.5-8.0)
[2019-12-27] MEDS: LEVOTHYROXINE 75 MCG TABLET PO SCH (07:39)
[2019-12-27] MEDS: ENOXAPARIN 30 MG/0.3 ML SYRINGE SQ SCH (09:22)
[2019-12-27] MEDS: VENLAFAXINE 75 MG CAP.XL.24H PO SCH (09:22)
[2019-12-27] MEDS: MEMANTINE 10 MG TABLET PO SCH (09:22)
[2019-12-27] MEDS: DOCUSATE SODIUM 100 MG CAPSULE PO SCH ×2 (09:22→09:28)
[2019-12-27] MEDS ORDERED: NEUTRA PHOS 1 PACKET PO ONE (09:45)
--- NOTE | 2019-12-27 10:54 | Discharge Summary ---
Discharge Provider Provider Patient information: Note initiated : 12/27/19 at 10:51 am Service Date, if different from initiated Date: [] Patient: Christina Lopez 69 y/o F admitted on 12/25/19 for Decreased appetite, Decreased kidney function. Chief Complaint: [] Date of admission: 12/25/19 17:25 Primary care physician: Axel Rosado Consults: 12/25/19 Consult to Physician [CONS] Stat Comment: Consulting Provider: Francisco Mondragon Reason For Exam: Physician to Consult Discharge Meds Discharge Medications Active and Home Medications: Home Medications acetaminophen [Tylenol Extra Strength] 1,000 mg PO Q4HP PRN 12/25/19 [History Confirmed 12/25/19 Last Taken Unknown] levothyroxine 75 mcg PO DAILY 12/25/19 [History Confirmed 12/25/19 Last Taken Unknown] loperamide 2 mg PO PRN PRN 12/25/19 [History Confirmed 12/25/19 Last Taken Unknown] loratadine 10 mg PO DAILY PRN 12/25/19 [History Confirmed 12/25/19 Last Taken Unknown] memantine 10 mg PO BID 12/25/19 [History Confirmed 12/25/19 Last Taken Unknown] mirtazapine 15 mg PO HS 12/25/19 [History Confirmed 12/25/19 Last Taken Unknown] venlafaxine 225 mg PO DAILY 12/25/19 [History Confirmed 12/25/19 Last Taken Unknown] COURSE Time Spent with Patient Time attestation: Discharge diagnosis *JENNIFER: prerenal-clinically resolved. Now at baseline. *Hypokalemia/Hypochloremia: Resolved *FTT/generalized weakness/deconditioning:-Family has been trying to get her into an [facility] recently. Case management coordinating discharge to [facility] *Cognitive Impairment vs dementia: Follows with Dr. Summers. Will transition to [facility] assisted living *Hypothyroidism: tsh wnl *Depression/Anxiety: Effexor, continue follow-up with primary care physician for outpatient management Brief hospital course Patient was at [facility] independent living for 2 and half years and then earlier this year because of memory issues they wanted to move her to the other side for closer watch however her niece says this was with a nonfunctional patients and they did not want to do this. Patient then went home and live by herself but did have family to come and help her. She seemed to be doing okay with family support till about 3 weeks ago where she seems to have been in decline. She is had decreased interest in any activity, she had decreased appetite, and family has been trying to get in her into [facility] assisted living facility but that has been a prolonged process. Over the past several days she is becoming more weak and lightheaded and more difficult to take care of her. She had kidney function testing which showed acute kidney injury. In the ED she was evaluated and found to have a creatinine of 1.8. Hyp ochloremia and hypokalemia. Pediatric Audiologist evaluated the patient in the ED as well. Patient given several liters of fluid. Ultrasound unremarkable. Urinalysis pending. UTI several weeks ago. 12/25 Slept well. Weakness improving some. No other complaints. Creatinine improving. 12/26-patient doing well. No overnight events. No concerns staff. Creatinine 1.1. Dementia at baseline. Discharging today. EXAM Constitutional Vitals: Temp Pulse Resp BP Pulse Ox 98.4 F 78 14 103/62 98 12/27/19 07:49 12/27/19 07:49 12/27/19 07:49 12/27/19 07:49 12/27/19 07:49 Discharge Data Data Completed and Pending Labs on day of discharge: Labs from last 24 hours 12/27/19 12/27/19 05:30 05:30 WBC 2.9 L RBC 4.00 Hgb 12.0 Hct 36.0 MCV 90.0 MCH 30.0 MCHC 33.3 RDW 13.7 Plt Count 103 L MPV 10.7 H Gran % 60.9 Lymph % (Auto) 26.4 [place] % (Auto) 10.6 Eos % (Auto) 1.4 Baso % (Auto) 0.7 Gran # 1.78 L Lymph # (Auto) 0.77 L [place] # (Auto) 0.31 Eos # (Auto) 0.04 Baso # (Auto) 0.02 Sodium 135 Potassium 3.7 Chloride 104 Carbon Dioxide 19 L Anion Gap 12.0 BUN 9 Creatinine 1.2 H GFR Calculation 46 Glucose 66 L Uric Acid 7.1 Calcium 8.8 Phosphorus 2.5 L Magnesium 1.8 Total Bilirubin 1.1 H Direct Bilirubin 0.5 H GGT 58 H AST 37 ALT 19 Alkaline Phosphatase 56 Lactate Dehydrogenase 150 Total Protein 5.5 L Albumin 3.4 Globulin 2.1 L Albumin/Globulin Ratio 1.6 Triglycerides 92 Preliminary micro results at discharge 12/25/19 14:52 Urine Culture - Preliminary Urine - Clean Void [place] Discharge Plan Patient/Caregiver Discharge Instructions Prescriptions: Continued mirtazapine 15 mg tablet 15 mg PO HS RF: 0 loperamide 2 mg Tablet 2 mg PO PRN PRN (Reason: Diarrhea) RF: 0 acetaminophen [Tylenol Extra Strength] 500 mg Tablet 1,000 mg PO Q4HP PRN (Reason: Pain, Moderate) RF: 0 levothyroxine 75 mcg tablet 75 mcg PO DAILY RF: 0 loratadine 10 mg Tablet 10 mg PO DAILY PRN (Reason: Allergy Symptoms) RF: 0 memantine 10 mg tablet 10 mg PO BID RF: 0 venlafaxine 75 mg Capsule,Extended Release 24hr 225 mg PO DAILY RF: 0 Follow Up Plan Follow up with: Axel Rosado DO [Primary Care Provider] - Patient Disposition: Home, Self-Care Prognosis: Fair Rehab Potential: Undetermined I certify that the patient requires SNF services: No Overall status at discharge: patient is back to baseline Discharge Orders: Discharge Order (Routine); Ordered 12/27/19 Ordered By: Enrique ROMANO VTE Deep Vein Thrombosis/Pulmonary Embolism Present on Admission: No
== END 2019-12-27 15:38 | disposition home or self-care (01) ==
LOC: MEDSUR 10:47 → ED 10:47 → MEDSUR 17:27
PROVIDERS: ADMIT Internal Medicine; ATTEND Internal Medicine

== ENCOUNTER 2020-01-19 09:35 | Inpatient (IN) ==
[2020-01-19] MEDS ORDERED: 0.9 % SODIUM CHLORIDE 500 ML IV ONE (10:09)
--- NOTE | 2020-01-19 10:12 | Emergency Department Note ---
Weakness HPI General Chief complaint: Weakness Stated complaint: Refusing to eat or drink, weakness, confusion Time Seen by Provider: 01/19/20 09:45 Source: patient Mode of arrival: wheelchair History of Present Illness HPI Narrative: Narrative: 70-year-old female patient return to the emergency department this morning for reevaluation. Patient is a resident of [facility] and nursing staff there have noticed the patient has had worsening cognitive impairment, decreased appetite, increased weakness, and overall decrease in her health status. Patient was evaluated in our emergency department last night by a colleague after falling at the facility. I reviewed the note indicates the patient was cardiac impaired but in no acute distress. She had to skin wounds evaluated treated. She was discharged home in stable condition. I reviewed the patient's recent primary care note dated 12/20 it was noted that the patient has had an ongoing lack of appetite, weight loss, and elevated renal functions. The note indicates that her elevated kidney functions were likely secondary to hydration status. However review of the patient's record does indicate that she was hospitalized several days later on 12/24 for acute kidney injury and hypokalemia. She spent 2 nights in the hospital and was discharged on 12/26 in stable condition. Today, patient is unsure why she is here. She does not recall falling last night. She does not recall eating breakfast morning. She is alert to her person only. She is unsure what facility she is in. She does have her remote memory intact. Her niece is at her bedside filling in the details. ROS: Denies systemic illness, fever, sweats, chills. Denies headaches, tinnitus, or vision changes. Denies runny nose, sinus congestion, or cough. Denies shortness of breath. Denies retrosternal chest pain or palpitations. Denies abdominal pain, nausea, vomiting, or diarrhea. Denies dysuria, hematuria, urinary frequency, or urinary urgency. Denies generalized or focal weakness. Related Data Home Medications Medication Instructions Recorded Confirmed acetaminophen [Tylenol Extra 1,000 mg PO Q4HP PRN 12/25/19 01/19/20 Strength] levothyroxine 75 mcg PO DAILY 12/25/19 01/19/20 loperamide 2 mg PO PRN PRN 12/25/19 01/19/20 loratadine 10 mg PO DAILY PRN 12/25/19 01/19/20 memantine 10 mg PO BID 12/25/19 01/19/20 mirtazapine 15 mg PO HS 12/25/19 01/19/20 venlafaxine 225 mg PO DAILY 12/25/19 01/19/20 dronabinol [Marinol] 2.5 mg PO BID 01/19/20 01/19/20 Allergies Allergy/AdvReac Type Severity Reaction Status Date / Time No Known Drug Allergies Allergy Verified 01/19/20 09:36 Review of Systems ROS ROS Narrative: Narrative: All systems ED: reviewed and negative except as stated. [facility] Narrative Patient History Narrative: Narrative: Medical/Surgical/Family History All Active Problems (Updated 01/19/20 @ 18:28 by Lawrence Melo PA-C) Weakness generalized (Acute) Adult failure to thrive syndrome (Acute) IBS (irritable bowel syndrome) (Acute) SVT (supraventricular tachycardia) (Acute) Abrasion of elbow (Acute) Dementia (Acute) Laceration of ear (Acute) JENNIFER (acute kidney injury) (Acute) Bradycardia with 41-50 beats per minute (Chronic) Fall (Acute) Contusion, lip (Acute) Contusion of lower limb, left (Acute) Contusion of lower limb, right (Acute) Cognitive dysfunction (Chronic) Edema extremities (Acute) Hypothyroidism, acquired (Acute) Anemia (Acute) Acute kidney failure (Acute) Dehydration (Acute) Acute hypokalemia (Acute) Social History Smoking Status: Never smoker Exam Narrative Narrative: Narrative: General General appearance: other (Well-developed, very frail-appearing 70-year-old female patient laying semirecumbent on the emergency room gurney in no acute distress. She has cognitive dysfunction but makes an attempt to answer all of my questions. Her remote memory is intact. She follows all of my commands. She is in no acute respiratory distress.) Expanded Head Head physical: Present contusion (Contusion noted to the left ear. Scant amount of dried, crusting blood but no active bleeding.) Eye Eye: Present normal appearance, PERRL and EOMI; Absent scleral icterus and conjunctival injection ENT ENT: Present normal oropharynx and mucous membranes dry Neck Neck: Present normal inspection, full ROM and trachea midline; Absent tenderness and lymphadenopathy Chest Chest: Present symmetric chest wall rise Respiratory Respiratory: Present normal lung sounds bilaterally; Absent respiratory distress, wheezes, stridor, accessory muscle use and prolonged expiratory phase Cardiovascular Cardiovascular: Present regular rate and normal rhythm; Absent systolic murmur and diastolic murmur Adbominal Abdominal: Present soft; Absent distention, tenderness, guarding, rebound, rigidity, organomegaly and mass Extremities Extremities: Present full ROM; Absent normal inspection (Dressing noted to the left elbow that has a scant amount of dark-colored drainage. No active bleeding.), tenderness, normal capillary refill and pedal edema Back Back: Absent CVA tenderness (R) and CVA tenderness (L) Expanded Neurological Patient oriented to: Present person; Absent place and time Speech: Present fluid speech CRANIAL NERVES: EOM function (II, III, IV, ): Normal, facial sensation (V): Normal, facial palsy (VII): Normal, gag reflex (IX): Normal, spinal accessory function (XI): Normal and tongue deviation (XII): Normal CEREBELLAR FUNCTION: ataxic gait Motor strength - LUE: 5/5 Motor strength - RUE: 5/5 Motor strength - LLE: 5/5 Motor strength - RLE: 5/5 UPPER MOTOR NEURON EXAM: pronator drift: Normal SENSORY EXAM UPPER EXTREMITY: Normal: light touch SENSORY EXAM LOWER EXTREMITY: Normal: light touch DTR: 2+: biceps (L), biceps (R), patellar (L) and patellar (R) Coma Scale Eye Opening: Spontaneous Coma Scale Motor Response: Obeys Commands Coma Scale Verbal Response: Confused Coma Scale Total: 14 Psychiatric Psychiatric: Present normal affect and normal mood Skin Skin: Present warm, dry and normal color Course Course Course Narrative: Patient is pleasantly demented but is following all my commands and make an attempt to answer all my questions. She has remarkably sharp remote memory and is able to recall where she grew up and who her mom and dad were. She has considerably decreased short-term memory and is not sure why she is here today. She did recognize her niece that she read to the bedside. Patient has recent hospitalization for hypokalemia as well as acute kidney injury. We are going to get some screening laboratory studies today. I am going to give her normal saline 500 mL bolus. She is not complaining of any pain or other problems. Upon reevaluation patient is sitting comfortably on the emergency room gursearchlight in no distress. A review of her diagnostic show the following: CBC within normal limits. CMP potassium 2.7, chloride 89, anion gap 21, BUN 24, total bilirubin 1.9, all others normal limits. TSH 0.41. Microscopic UA showing yaritza-colored urine with specific gravity 1.021, proteinuria, ketonuria, urobilinogen 4.0, no evidence of infection, no blood. After reviewing all the data I discussed these findings with the patient and her niece. She does have considerable hypokalemia with potassium at 2.7. She has had hypokalemia in the past and was recently hospitalized with similar c ondition. We are going to begin potassium replacement with 20 mEq orally and 40 mEq IV. Patient was educated that replacing potassium intravenously does take a long time. Within approximately 1 hour starting the patient became somewhat agitated requested to go home. I tried to explain to her the reason behind the IV infusion. She does not remember coming in this morning. She does not remember that her niece had accompanied her. Patient does have profound hypokalemia and does need the potassium infusion. Nursing staff reached out to the patient's niece and requested that she come back to the emergency department to help calm the patient. Repeat chemistry panel shows potassium increased slightly to 3.0. I went back and reevaluated the patient. She is sitting comfortably on the emergency room gurney and tells me "I feel fine". Nursing staff was instructed to get the patient up and see how she moves about. Unfortunately, she was not able to stand on her own accord or take any meaningful steps. She became very unsteady and was placed back on the emergency room gurney. Her potassium did not increase as much as I would have liked with the total of 60 mEq provided today. This, coupled with her unsteadiness and failure to thrive at home is prompted that I reached out to the hospitalist about possible admission here for further treatment. I spoke to our hospitalist (Dr. Rivera) and discussed the case with him. Dr. Rivera has consented to admit the patient here to the facility. I informed both the patient and her niece about the admission and they verbalized understanding. At this time all further treatment decisions, modalities, and ultimate patient disposition will be carried out by Dr. Rivera. Vital Signs Vital signs: Vital Signs Temperature 98.6 F 01/19/20 09:36 Pulse Rate 83 01/19/20 09:36 Respiratory Rate 16 01/19/20 09:36 Blood Pressure 114/65 01/19/20 09:36 Pulse Oximetry (%) 99 01/19/20 09:36 Temperature 98.6 F 01/19/20 20:46 Pulse Rate 75 01/19/20 20:46 Respiratory Rate 18 01/19/20 20:46 Blood Pressure 132/95 01/19/20 20:46 Pulse Oximetry (%) 100 01/19/20 20:46 MDM MDM Narrative Medical decision making narrative: Narrative: Lab Data Result diagrams: 01/19/20 10:18 01/19/20 10:18 Labs: Lab Results 01/19/20 01/19/20 01/19/20 Range/Units 10:18 10:18 10:39 WBC 5.1 (4.50-11.00) K/mcL RBC 4.28 (3.59-5.38) M/mcL Hgb 13.1 (11.2-15.7) g/dL Hct 36.8 (34.1-44.9) % POC Hct MCV 86.0 (80.0-100.0) fL MCH 30.6 (26.0-34.0) pg MCHC 35.6 (31.0-36.0) g/dL RDW 13.0 (11.5-14.5) % Plt Count 136 L (140-440) K/mcL MPV 9.4 (7.4-10.4) fL Gran % 78.4 H (38.0-78.0) % Lymph % (Auto) 14.1 L (15.5-49.0) % [place] % (Auto) 6.9 (1.0-12.0) % Eos % (Auto) 0.2 (0.0-7.0) % Baso % (Auto) 0.4 (0.0-2.0) % Gran # 4.00 (1.80-8.00) K/mcL Lymph # (Auto) 0.72 L (1.50-4.80) K/mcL [place] # (Auto) 0.35 (0.10-0.90) K/mcL Eos # (Auto) 0.01 (0.00-0.70) K/mcL Baso # (Auto) 0.02 (0.00-0.30) K/mcL POC Sodium Sodium 135 (133-145) mmol/L POC Potassium Potassium 2.7 L* (3.3-5.1) mmol/L POC Chloride Chloride 89 L (96-108) mmol/L Carbon Dioxide 25 (22-30) mmol/L POC Total CO2 Anion Gap 21.0 H (8-16) POC BUN BUN 24 H (8-23) mg/dl Creatinine 1.1 (0.6-1.1) mg/dl POC Creatinine GFR Calculation 51 Glucose 93 (70-105) mg/dL POC Glucose Calcium 9.6 (8.6-10.4) mg/dl POC WB Ioniz Calcium Total Bilirubin 1.9 H (0.0-1.0) mg/dL AST 36 (0-37) U/l ALT 19 (0-40) U/l Alkaline Phosphatase 81 (39-117) U/L Total Protein 7.1 (5.9-8.4) gm/dL Albumin 4.3 (3.2-5.2) gm/dL Globulin 2.8 (2.2-3.7) gm/dL Albumin/Globulin Ratio 1.5 (1.0-2.3) TSH 0.41 (0.27-5.01) uIU/ml Urine Color Yaritza Urine Appearance Clear Urine pH 6.0 (5.0-9.0) Ur Specific [place] 1.021 (1.000-1.035) Urine Protein 30 A (NEG) mg/dL Urine Glucose (UA) Negative (NEG) mg/dL Urine Ketones 20 A (NEG) mg/dL Urine Occult Blood Neg (<0.03) mg/dL Urine Nitrate Neg (NEG) Urine Bilirubin Neg (NEG) mg/dL Urine Urobilinogen 4.0 A (NEG) mg/dL Ur Leukocyte Esterase Neg (NEG) /uL Urine RBC 0 (0-1) /hpf Urine WBC < 1 (0-4) /hpf Ur Squamous Epith Cells 0 (0-4) /hpf Urine Bacteria 0 (0) /hpf Urine Mucus Few (0) /hpf Ur Culture Indicated? No 01/19/20 01/19/20 Range/Units 17:19 17:20 WBC (4.50-11.00) K/mcL RBC (3.59-5.38) M/mcL Hgb (11.2-15.7) g/dL Hct (34.1-44.9) % POC Hct Cancelled 34.0 L MCV (80.0-100.0) fL MCH (26.0-34.0) pg MCHC (31.0-36.0) g/dL RDW (11.5-14.5) % Plt Count (140-440) K/mcL MPV (7.4-10.4) fL Gran % (38.0-78.0) % Lymph % (Auto) (15.5-49.0) % [place] % (Auto) (1.0-12.0) % Eos % (Auto) (0.0-7.0) % Baso % (Auto) (0.0-2.0) % Gran # (1.80-8.00) K/mcL Lymph # (Auto) (1.50-4.80) K/mcL [place] # (Auto) (0.10-0.90) K/mcL Eos # (Auto) (0.00-0.70) K/mcL Baso # (Auto) (0.00-0.30) K/mcL POC Sodium Cancelled 132 L Sodium (133-145) mmol/L POC Potassium Cancelled 3.0 L Potassium (3.3-5.1) mmol/L POC Chloride Cancelled 93 L Chloride (96-108) mmol/L Carbon Dioxide (22-30) mmol/L POC Total CO2 Cancelled 23 Anion Gap (8-16) POC BUN Cancelled 19 BUN (8-23) mg/dl Creatinine (0.6-1.1) mg/dl POC Creatinine Cancelled 0.9 GFR Calculation Glucose (70-105) mg/dL POC Glucose Cancelled 120 H Calcium (8.6-10.4) mg/dl POC WB Ioniz Calcium Cancelled 1.10 L Total Bilirubin (0.0-1.0) mg/dL AST (0-37) U/l ALT (0-40) U/l Alkaline Phosphatase (39-117) U/L Total Protein (5.9-8.4) gm/dL Albumin (3.2-5.2) gm/dL Globulin (2.2-3.7) gm/dL Albumin/Globulin Ratio (1.0-2.3) TSH (0.27-5.01) uIU/ml Urine Color Urine Appearance Urine pH (5.0-9.0) Ur Specific [place] (1.000-1.035) Urine Protein (NEG) mg/dL Urine Glucose (UA) (NEG) mg/dL Urine Ketones (NEG) mg/dL Urine Occult Blood (<0.03) mg/dL Urine Nitrate (NEG) Urine Bilirubin (NEG) mg/dL Urine Urobilinogen (NEG) mg/dL Ur Leukocyte Esterase (NEG) /uL Urine RBC (0-1) /hpf Urine WBC (0-4) /hpf Ur Squamous Epith Cells (0-4) /hpf Urine Bacteria (0) /hpf Urine Mucus (0) /hpf Ur Culture Indicated? Discharge Plan Patient/Caregiver Discharge Instructions Pt seen by COOK DESSERT/PA only: Yes Clinical Impression: Acute hypokalemia, Weakness generalized, Adult failure to thrive syndrome Patient Disposition: Xfer As Inpt ([facility]) Condition: Fair Discharge Date/Time: 01/19/20 20:03
[2020-01-19 11:13] LABS: Basophils # (Auto) 0.02 K/mcL (0.00-0.30); Basophils % (Auto) 0.4 % (0.0-2.0); Eosinophils # (Auto) 0.01 K/mcL (0.00-0.70); Eosinophils % (Auto) 0.2 % (0.0-7.0); Granulocytes % (Auto) 78.4 % (38.0-78.0); Hematocrit 36.8 % (34.1-44.9); Hemoglobin 13.1 g/dL (11.2-15.7); Lymphocytes # (Auto) 0.72 K/mcL (1.50-4.80); Lymphocytes % (Auto) 14.1 % (15.5-49.0); Mean Corpuscular HGB Conc 35.6 g/dL (31.0-36.0); Mean Platelet Volume 9.4 fL (7.4-10.4); Monocytes # (Auto) 0.35 K/mcL (0.10-0.90); Monocytes % (Auto) 6.9 % (1.0-12.0); Platelet Count 136 K/mcL (140-440); RBC 4.28 M/mcL (3.59-5.38); WBC 5.1 K/mcL (4.50-11.00)
[2020-01-19 11:18] LABS: Appearance,Urine CLEAR; Bacteria,Urine 0 /hpf (0); Bilirubin,Urine NEG (NEG); Color,Urine AMBER; Culture Indicated,Urine NO; Glucose,Urine (UA) NEGATIVE (NEG); Ketones,Urine 20 mg/dL (NEG); Leukocyte Esterase,Urine NEG /uL (NEG); Mucus,Urine FEW /hpf (0); Nitrate,Urine NEG (NEG); Protein,Urine 30 mg/dL (NEG); Specific Gravity,Urine 1.021 (1.000-1.035); Urine Blood NEG mg/dL (<0.03); Urine RBC 0 /hpf (0-1); Urine Squamous Epithelial Cell 0 /hpf (0-4); Urine WBC < 1 /hpf (0-4)
[2020-01-19 11:48] LABS: ALT/SGPT 19 U/l (0-40); AST/SGOT 36 U/l (0-37); Albumin 4.3 gm/dL (3.2-5.2); Albumin/Globulin Ratio 1.5 (1.0-2.3); Alkaline Phosphatase 81 U/L (39-117); Bilirubin,Total 1.9 mg/dL (0.0-1.0); Blood Urea Nitrogen 24 mg/dl (8-23); Calcium 9.6 mg/dl (8.6-10.4); Carbon Dioxide 25 mmol/L (22-30); Globulin 2.8 gm/dL (2.2-3.7); Glomerular Filtration Rate 51; Glucose 93 mg/dL (70-105); Thyroid Stimulating Hormone 0.41 uIU/ml (0.27-5.01)
[2020-01-19] MEDS ORDERED: POTASSIUM CHLORIDE 20 MEQ TABLET PO ONE (11:55)
[2020-01-19] MEDS ORDERED: POTASSIUM CHLORIDE 40 MEQ in DEXTROSE 5% IN WATER 500 ML IV ONE (11:55)
[2020-01-19 11:56] LABS: Chloride 89 mmol/L (96-108)
[2020-01-19] MEDS ORDERED: ONDANSETRON 4 MG/2 ML VIAL IV ONE (15:31)
[2020-01-19 17:24] LABS: POC Blood Urea Nitrogen 19 mg/dl (8-23); POC CO2 23 mmol/L (22-30); POC Chloride 93 mmol/L (96-108); POC Creatinine 0.9 mg/dl (0.6-1.1); POC Glucose, Random 120 mg/dL (70-105); POC Sodium 132 mmol/L (133-145)
--- NOTE | 2020-01-19 18:07 | Internal Med History&Physical ---
HPI History of Present Illness Patient information: Note initiated : 01/19/20 at 6:01 pm Service Date, if different from initiated Date: [] Patient: Christina Lopez a 70 y/o F admitted on for Refusing to eat or drink, weakness, confusion. Chief Complaint: []weakness History of present illness: Ms. Lopez is a 70 year old F with advanced dementia resident of [facility] was recently hospitalized with significant electrolyte maladies/acute kidney injury and failure to thrive. She was discharged 2 days after 48-hour hospitalization. Patient now presents to the ER the second time following worsening cognitive lack of appetite, increasing fatigue weakness and malaise and referred for further evaluation. Work-up was consistent with hypokalemia at 2.7 and weakness. Hospital service was consulted in light concerns of decompensation if discharged second time At the time evaluation patient is accompanied with her niece. Patient however was not able to provide any meaningful history. Her niece was able to provide answers to most of the questions. Remaining history was obtained from review of medical records and ER physician. Review of systems Attempted but patient was able to answer some of the question and denies chest pains headache, nausea, vomiting. [facility] Social History (Updated 12/25/19 @ 15:58 by Ras Fonseca DO) smoking status: Never smoker additional history: Past medical history: Cognitive decline versus dementia, follows with Dr. Summers Past surgical history: None Family: Mother had colon cancer and some psychiatric issues Father was healthy other than prostate cancer Social history: Patient denies tobacco she has 1 glass of wine a night Lives by herself with family coming in to help and care for her. MEDS/ALLERGIES Home Medications and Allergies Home Medications Medication Instructions Recorded Confirmed Type acetaminophen [Tylenol Extra 1,000 mg PO Q4HP PRN 12/25/19 01/19/20 History Strength] levothyroxine 75 mcg PO DAILY 12/25/19 01/19/20 History loperamide 2 mg PO PRN PRN 12/25/19 01/19/20 History loratadine 10 mg PO DAILY PRN 12/25/19 01/19/20 History memantine 10 mg PO BID 12/25/19 01/19/20 History mirtazapine 15 mg PO HS 12/25/19 01/19/20 History venlafaxine 225 mg PO DAILY 12/25/19 01/19/20 History dronabinol [Marinol] 2.5 mg PO BID 01/19/20 01/19/20 History Allergies Allergy/AdvReac Type Severity Reaction Status Date / Time No Known Drug Allergies Allergy Verified 01/19/20 09:36 EXAM Constitutional Vitals: Temp Pulse Resp BP Pulse Ox 98.6 F 71 15 142/70 100 01/19/20 09:36 01/19/20 16:31 01/19/20 16:31 01/19/20 16:31 01/19/20 16:31 Thin built, weak and fatigued Head normocephalic, temporal wasting Oral cavity moist No ear nose discharge Eye movement symmetrical Neck supple no lymphadenopathy S1-S2 occasionally irregular Nonlabored breathing Nondistended nontender abdomen Lower extremity no cyanosis clubbing or joint swelling Skin no suspicious lesion Psych anxious, disoriented to time and place but cooperative Neuro moving all 4 extremities. Higher functions abnormal DATA Data Completed and Pending Labs on day of discharge: Labs from last 24 hours 01/19/20 01/19/20 01/19/20 17:20 17:19 10:39 WBC RBC Hgb Hct POC Hct 34.0 L Cancelled MCV MCH MCHC RDW Plt Count MPV Gran % Lymph % (Auto) [place] % (Auto) Eos % (Auto) Baso % (Auto) Gran # Lymph # (Auto) [place] # (Auto) Eos # (Auto) Baso # (Auto) POC Sodium 132 L Cancelled Sodium POC Potassium 3.0 L Cancelled Potassium POC Chloride 93 L Cancelled Chloride Carbon Dioxide POC Total CO2 23 Cancelled Anion Gap POC BUN 19 Cancelled BUN Creatinine POC Creatinine 0.9 Cancelled GFR Calculation Glucose POC Glucose 120 H Cancelled Calcium POC WB Ioniz Calcium 1.10 L Cancelled Total Bilirubin AST ALT Alkaline Phosphatase Total Protein Albumin Globulin Albumin/Globulin Ratio TSH Urine Color Gayatri Urine Appearance Clear Urine pH 6.0 Ur Specific [place] 1.021 Urine Protein 30 A Urine Glucose (UA) Negative Urine Ketones 20 A Urine Occult Blood Neg Urine Nitrate Neg Urine Bilirubin Neg Urine Urobilinogen 4.0 A Ur Leukocyte Esterase Neg Urine RBC 0 Urine WBC < 1 Ur Squamous Epith Cells 0 Urine Bacteria 0 Urine Mucus Few Ur Culture Indicated? No 01/19/20 01/19/20 10:18 10:18 WBC 5.1 RBC 4.28 Hgb 13.1 Hct 36.8 POC Hct MCV 86.0 MCH 30.6 MCHC 35.6 RDW 13.0 Plt Count 136 L MPV 9.4 Gran % 78.4 H Lymph % (Auto) 14.1 L [place] % (Auto) 6.9 Eos % (Auto) 0.2 Baso % (Auto) 0.4 Gran # 4.00 Lymph # (Auto) 0.72 L [place] # (Auto) 0.35 Eos # (Auto) 0.01 Baso # (Auto) 0.02 POC Sodium Sodium 135 POC Potassium Potassium 2.7 L* POC Chloride Chloride 89 L Carbon Dioxide 25 POC Total CO2 Anion Gap 21.0 H POC BUN BUN 24 H Creatinine 1.1 POC Creatinine GFR Calculation 51 Glucose 93 POC Glucose Calcium 9.6 POC WB Ioniz Calcium Total Bilirubin 1.9 H AST 36 ALT 19 Alkaline Phosphatase 81 Total Protein 7.1 Albumin 4.3 Globulin 2.8 Albumin/Globulin Ratio 1.5 TSH 0.41 Urine Color Urine Appearance Urine pH Ur Specific [place] Urine Protein Urine Glucose (UA) Urine Ketones Urine Occult Blood Urine Nitrate Urine Bilirubin Urine Urobilinogen Ur Leukocyte Esterase Urine RBC Urine WBC Ur Squamous Epith Cells Urine Bacteria Urine Mucus Ur Culture Indicated? A/P Narrative A/P Narrative: * Hypokalemia continue aggressive IV and oral replacement * Dementia with psychosis, monitoring. Frequent reorientation and bright lights and avoiding sedative-hypnotics. Follows up with Dr. Summers urology as outpatient. * hypothyroidism continue thyroxine * Failure to thrive/ Falls and weakness PT OT eval/possible transfer to SNF * History anxiety depression continue Effexor PLAN * Inpt admit * K replacement * PT/OT * Pre-existing medical condition management as above * PT OT/high calorie supplements * Discharge planning per case management Time Spent With Patient Time: Total time spent is greater than 50% in coordination of care (as documented) at patient's floor/unit and/or counseling patient: Total time spent with greater than 50% in coordination of care (as documented) at patient's floor/unit and/or counseling patient:: Greater than 35 minutes
[2020-01-19] MEDS ORDERED: ONDANSETRON 4 MG/2 ML VIAL IV PRN (20:23)
[2020-01-19] MEDS ORDERED: POLYETHYLENE GLYCOL 3350 17 GM PACKET PO PRN (20:23)
[2020-01-19] MEDS ORDERED: BISACODYL 10 MG SUPP.RECT PR PRN (20:23)
[2020-01-19] MEDS ORDERED: POTASSIUM CHLORIDE 20 MEQ PACKET PO PRN (20:23)
[2020-01-19] MEDS ORDERED: MAGNESIUM SULFATE 2 GM/50 ML BAG IV PRN (20:23)
[2020-01-19] MEDS ORDERED: ACETAMINOPHEN 650 MG/65 ML BOTTLE IV PRN (20:23)
[2020-01-19] MEDS ORDERED: CALCIUM CHLORIDE 1,000 MG/10 ML SYRINGE IV PRN (20:23)
[2020-01-19] MEDS ORDERED: ACETAMINOPHEN 325 MG TABLET PO PRN (20:23)
[2020-01-19] MEDS ORDERED: ONDANSETRON 4 MG ODT TABLET SL PRN (20:23)
[2020-01-19] MEDS ORDERED: METOPROLOL TARTRATE 5 MG/5 ML VIAL IV PRN (20:23)
[2020-01-19] MEDS ORDERED: POTASSIUM CHLORIDE 40 MEQ in DEXTROSE 5% IN WATER 500 ML IV PRN (20:23)
[2020-01-19] MEDS: 0.9 % SODIUM CHLORIDE 1,000 ML IV SCH (20:32)
[2020-01-19] MEDS ORDERED: CALCIUM GLUCONATE 4.65 MEQ in DEXTROSE 5% IN WATER 50 ML IV PRN (20:34)
[2020-01-19] MEDS: SENNOSIDES/DOCUSATE SODIUM 1 TAB TABLET PO SCH (22:17)
[2020-01-19] MEDS: CYANOCOBALAMIN (VITAMIN B-12) 500 MCG TABLET PO SCH (22:17)
[2020-01-19] MEDS: HEPARIN 5,000 UNIT/ML VIAL SQ SCH (22:17)
[2020-01-19] MEDS: DOCUSATE SODIUM 100 MG CAPSULE PO SCH (22:17)
[2020-01-19] MEDS: 0.9 % SODIUM CHLORIDE 10 ML SYRINGE IV SCH (22:18)
[2020-01-20 06:57] LABS: Hematocrit 35.8 % (34.1-44.9); Hemoglobin 12.4 g/dL (11.2-15.7); Mean Cell Volume 87.7 fL (80.0-100.0); Mean Corpuscular HGB Conc 34.6 g/dL (31.0-36.0); Mean Platelet Volume 9.7 fL (7.4-10.4); RBC 4.08 M/mcL (3.59-5.38); WBC 4.3 K/mcL (4.50-11.00)
[2020-01-20 07:02] LABS: Platelet Count 111 K/mcL (140-440)
[2020-01-20 07:23] LABS: ALT/SGPT 17 U/l (0-40); AST/SGOT 32 U/l (0-37); Albumin 4.1 gm/dL (3.2-5.2); Albumin/Globulin Ratio 1.6 (1.0-2.3); Alkaline Phosphatase 76 U/L (39-117); Bilirubin,Direct 0.6 mg/dL (0.0-0.3); Calcium 9.2 mg/dl (8.6-10.4); Carbon Dioxide 22 mmol/L (22-30); Globulin 2.5 gm/dL (2.2-3.7); Glomerular Filtration Rate 65; Glucose 87 mg/dL (70-105); Lactate Dehydrogenase 183 U/L (94-250); Triglycerides 98 mg/dl (<150); Uric Acid 4.1 mg/dL (2.5-8.0)
[2020-01-20 08:03] LABS: Blood Urea Nitrogen 15 mg/dl (8-23); Chloride 94 mmol/L (96-108); Phosphorous 1.9 mg/dL (2.7-4.5)
[2020-01-20 08:18] LABS: Lymphocytes % 18 % (15-49); Monocytes % (Manual) 4 % (1-12); Platelet Estimate NORMAL (NORMAL); RBC Morphology NORMAL (NORMAL); Segmented Neutrophils % 78 % (38-78)
[2020-01-20] MEDS ORDERED: POTASSIUM CHLORIDE 20 MEQ TABLET PO SCH (09:10)
[2020-01-20] MEDS: MULTIVIT,THER IRON,CA,FA & MIN 1 TABLET PO SCH ×2 (11:30→12:24)
[2020-01-20] MEDS: DOCUSATE SODIUM 100 MG CAPSULE PO SCH ×4 (11:30→21:51)
[2020-01-20] MEDS: CYANOCOBALAMIN (VITAMIN B-12) 500 MCG TABLET PO SCH ×3 (11:30→21:14)
[2020-01-20] MEDS: THIAMINE 100 MG TABLET PO SCH ×2 (11:30→12:25)
[2020-01-20] MEDS: HEPARIN 5,000 UNIT/ML VIAL SQ SCH ×2 (11:36→21:14)
--- NOTE | 2020-01-20 11:36 | Internal Med Progress Note ---
SUBJECTIVE Subjective Patient information: Note initiated : 01/20/20 at 11:33 am Service Date, if different from initiated Date: [] Patient: Christina Lopez a 70 y/o F admitted on 01/19/20 for Refusing to eat or drink, weakness, confusion. Chief Complaint: History of present illness: Ms. Lopez is a 70 year old F with advanced dementia resident of [place] was recently hospitalized with significant electrolyte maladies/acute kidney injury and failure to thrive. She was discharged 2 days after 48-hour hospitalization. Patient now presents to the ER the second time following worsening cognitive lack of appetite, increasing fatigue weakness and malaise and referred for further evaluation. Work-up was consistent with hypokalemia at 2.7 and weakness. Hospital service was consulted in light concerns of decompensation if discharged second time At the time evaluation patient is accompanied with her niece. Patient however was not able to provide any meaningful history. Her niece was able to provide answers to most of the questions. Remaining history was obtained from review of medical records and ER physician. 01/19-patient doing well. No overnight events. No concerns per staff. No fever chills nausea vomiting. Persistent baseline dementia. Ambulating with assistance. Tolerating potassium supplement. Repeat potassium at 2.8 on aggressive replacement including oral and IV, on aggressive protein calorie supplements. Ongoing PT OT Constitutional Vitals: Vital Signs Temp Pulse Resp BP Pulse Ox 98.2 F 77 16 127/75 97 01/20/20 07:42 01/20/20 07:42 01/20/20 07:42 01/20/20 07:42 01/20/20 07:42 Period Temp Pulse Resp BP Sys/Gray Pulse Ox Last 24 Hr 97.9 F-98.6 F 65-79 8-27 121-157/63-110 91-100 Intake and Output 01/19/20 01/20/20 01/20/20 21:59 05:59 13:59 Intake Total 520 150 Output Total 75 480 Balance 445 -330 Weight 48.761 kg 48.761 kg Patient Weight 01/21/20 05:59 Weight 48.761 kg Alert ambulating Nonlabored breathing Nondistended abdomen No anxiety Muscle wasting noted Intake & Output: Intake & Output 01/19/20 01/20/20 01/20/20 21:59 05:59 13:59 Intake Total 520 150 Output Total 75 480 Balance 445 -330 Weight 48.761 kg 48.761 kg Intake: IV 520 Potassium Chloride 40 Meq In 520 Dextrose 5% in Water 500 ml @ 130 mls/hr IV ONCE ONE Rx#: [id number] Oral 150 Output: Void Amount 75 480 Other: Urine Appearance Clear Clear Clear Urine Color Dark Yellow Bright Yellow Dark Yellow Urine Odor Normal Normal # Voids 1 OBJ DATA Labs CBC & Chem 7: 01/20/20 05:37 01/20/20 05:37 Labs: Abnormal Lab Results 01/20/20 01/20/20 01/19/20 05:37 05:37 17:20 WBC 4.3 L POC Hct 34.0 L Plt Count 111 L Gran % Lymph % (Auto) Lymph # (Auto) POC Sodium 132 L Sodium 132 L POC Potassium 3.0 L Potassium 2.8 L* POC Chloride 93 L Chloride 94 L Anion Gap BUN POC Glucose 120 H POC WB Ioniz Calcium 1.10 L Phosphorus 1.9 L Total Bilirubin 2.0 H Direct Bilirubin 0.6 H GGT 74 H Urine Protein Urine Ketones Urine Urobilinogen 01/19/20 01/19/20 01/19/20 10:39 10:18 10:18 WBC POC Hct Plt Count 136 L Gran % 78.4 H Lymph % (Auto) 14.1 L Lymph # (Auto) 0.72 L POC Sodium Sodium POC Potassium Potassium 2.7 L* POC Chloride Chloride 89 L Anion Gap 21.0 H BUN 24 H POC Glucose POC WB Ioniz Calcium Phosphorus Total Bilirubin 1.9 H Direct Bilirubin GGT Urine Protein 30 A Urine Ketones 20 A Urine Urobilinogen 4.0 A Meds: Medications Acetaminophen (Tylenol) 650 mg PO Q4-6HP PRN; Protocol PRN Reason: Per Pain Protocol/Fever > 101 Bisacodyl (Dulcolax) 10 mg IN Q2-3DAYS PRN PRN Reason: Constipation Cyanocobalamin (Vitamin B-12) 1,000 mcg PO BID [facility] Stop: 01/24/20 09:01 Last Admin: 01/20/20 11:30 Dose: 1,000 mcg Documented by: Docusate Sodium (Colace) 100 mg PO BID [facility] Last Admin: 01/20/20 11:30 Dose: 100 mg Documented by: Heparin Sodium (Porcine) (Heparin) 5,000 unit SQ Q12 [facility] Last Admin: 01/19/20 22:17 Dose: 5,000 unit Documented by: Sodium Chloride (Sodium Chloride 0.9%) 1,000 mls @ 50 mls/hr IV .Q20H [facility] Stop: 01/22/20 08:22 Last Admin: 01/19/20 20:32 Dose: 50 mls/hr Documented by: Acetaminophen (Ofirmev) 650 mg in 65 mls @ 130 mls/hr IV Q6HP PRN; Protocol PRN Reason: Per Pain Protocol/Fever > 101 Magnesium Sulfate (Magnesium Sulfate) 2 gm in 50 mls @ 50 mls/hr IV UD PRN PRN Reason: MG = or < 1.7 Potassium Chloride 40 meq/ (Dextrose) 520 mls @ 130 mls/hr IV UD PRN PRN Reason: K+ = or < 3.5 Calcium Gluconate 4.65 meq/ (Dextrose) 60 mls @ 100 mls/hr IV ONCE PRN PRN Reason: CALCIUM = OR < 7.8 Iron Carb/Multivit/Valentine/Folic Acid (Multivitamin W/Minerals) 1 tab PO DAILY [facility] Last Admin: 01/20/20 11:30 Dose: 1 tab Documented by: Melatonin (Melatonin 3mg Tablet) 3 mg PO HSP PRN PRN Reason: Insomnia Metoprolol Tartrate (Lopressor) 5 mg IV Q5M PRN PRN Reason: Heart Rate > 140 bpm Ondansetron HCl (Zofran Odt) 4 mg SL Q4-6HP PRN; Protocol PRN Reason: Nausea And Vomiting Ondansetron HCl (Zofran) 4 mg IV Q4-6HP PRN; Protocol PRN Reason: Nausea And Vomiting Pneumococcal Polyvalent Vaccine (Pneumovax 23) 0.5 ml IM .ONCE ONE Stop: 01/21/20 10:01 Polyethylene Glycol (Miralax) 17 gm PO DAILYP PRN PRN Reason: Constipation Potassium Chloride (Klor-Con) 40 meq PO DAILYP PRN PRN Reason: K+ < 3.5 Potassium Chloride (Kdur) 40 meq PO Q4 [facility] Stop: 01/20/20 12:01 Senna/Docusate Sodium (Senna Plus Tablet) 1 tab PO HS [facility] Last Admin: 01/19/20 22:17 Dose: 1 tab Documented by: Sodium Chloride (Saline Flush) 10 ml IV Q8 [facility] Last Admin: 01/19/20 22:18 Dose: 10 ml Documented by: Thiamine HCl (Vitamin B1) 100 mg PO DAILY [facility] Last Admin: 01/20/20 11:30 Dose: 100 mg Documented by: A/P Narrative A/P Narrative: * Hypokalemia continue aggressive IV and oral replacement, additional 80 mEq potassium replacement today * Dementia with psychosis, monitoring. Currently stable. Continue frequent reorientation and bright lights and avoiding sedative-hypnotics. Follows up with Dr. Summers urology as outpatient. * hypothyroidism continue thyroxine * Failure to thrive/ Falls and weakness, continue dietary intervention/dietitian consult/PT OT eval/possible transfer to SNF * History anxiety depression continue Effexor PLAN * Continue aggressive electrolyte replacement * Protein calorie supplements/dietitian consult * PT/OT * Pre-existing medical condition management as above * Discharge planning per case management Time Spent With Patient Time: Total time spent is greater than 50% in coordination of care (as doc umented) at patient's floor/unit and/or counseling patient: QUALITY VTE Deep Vein Thrombosis/Pulmonary Embolism Present on Admission: No
[2020-01-20] MEDS: 0.9 % SODIUM CHLORIDE 10 ML SYRINGE IV SCH ×3 (11:43→21:21)
[2020-01-20] MEDS: POTASSIUM CHLORIDE 20 MEQ TABLET PO SCH ×2 (12:16→16:07)
[2020-01-20] MEDS: 0.9 % SODIUM CHLORIDE 1,000 ML IV SCH (17:13)
[2020-01-20] MEDS: MELATONIN 3 MG TABLET PO PRN (21:13)
[2020-01-20] MEDS: SENNOSIDES/DOCUSATE SODIUM 1 TAB TABLET PO SCH ×2 (21:14→21:52)
[2020-01-21] MEDS: 0.9 % SODIUM CHLORIDE 10 ML SYRINGE IV SCH ×3 (05:15→22:32)
[2020-01-21 06:50] LABS: Hemoglobin 12.2 g/dL (11.2-15.7); Mean Cell Volume 87.9 fL (80.0-100.0); Mean Corpuscular HGB Conc 34.9 g/dL (31.0-36.0); Mean Platelet Volume 10.1 fL (7.4-10.4); RBC 3.98 M/mcL (3.59-5.38); Red Cell Distribution Width 12.9 % (11.5-14.5); WBC 4.9 K/mcL (4.50-11.00)
[2020-01-21 06:52] LABS: Platelet Count 106 K/mcL (140-440)
[2020-01-21 07:48] LABS: ALT/SGPT 19 U/l (0-40); AST/SGOT 35 U/l (0-37); Albumin 3.9 gm/dL (3.2-5.2); Albumin/Globulin Ratio 1.6 (1.0-2.3); Alkaline Phosphatase 79 U/L (39-117); Bilirubin,Direct 0.5 mg/dL (0.0-0.3); Bilirubin,Total 1.7 mg/dL (0.0-1.0); Blood Urea Nitrogen 12 mg/dl (8-23); Calcium 8.9 mg/dl (8.6-10.4); Carbon Dioxide 21 mmol/L (22-30); Chloride 98 mmol/L (96-108); Globulin 2.5 gm/dL (2.2-3.7); Glomerular Filtration Rate 75; Glucose 92 mg/dL (70-105); Lactate Dehydrogenase 180 U/L (94-250); Triglycerides 101 mg/dl (<150); Uric Acid 3.1 mg/dL (2.5-8.0)
[2020-01-21 07:50] LABS: Phosphorous 1.5 mg/dL (2.7-4.5)
[2020-01-21 08:10] LABS: Lymphocytes % 23 % (15-49); Monocytes % (Manual) 3 % (1-12); Platelet Estimate DECREASED (NORMAL); RBC Morphology NORMAL (NORMAL); Segmented Neutrophils % 74 % (38-78)
[2020-01-21] MEDS ORDERED: PNEUMOCOCCAL 23-VAL P-SAC VAC 0.5 ML SYRINGE IM ONE (10:00)
--- NOTE | 2020-01-21 10:18 | Internal Med Progress Note ---
SUBJECTIVE Subjective Patient information: Note initiated : 01/21/20 at 10:16 am Service Date, if different from initiated Date: [] Patient: Christina Lopez a 70 y/o F admitted on 01/19/20 for Refusing to eat or drink, weakness, confusion. Chief Complaint: History of present illness: Ms. Lopez is a 70 year old F with advanced dementia resident of [place] was recently hospitalized with significant electrolyte maladies/acute kidney injury and failure to thrive. She was discharged 2 days after 48-hour hospitalization. Patient now presents to the ER the second time following worsening cognitive lack of appetite, increasing fatigue weakness and malaise and referred for further evaluation. Work-up was consistent with hypokalemia at 2.7 and weakness. Hospital service was consulted in light concerns of decompensation if discharged second time At the time evaluation patient is accompanied with her niece. Patient however was not able to provide any meaningful history. Her niece was able to provide answers to most of the questions. Remaining history was obtained from review of medical records and ER physician. 01/19-patient doing well. No overnight events. No concerns per staff. No fever chills nausea vomiting. Persistent baseline dementia. Ambulating with assistance. Tolerating potassium supplement. Repeat potassium at 2.8 on aggressive replacement including oral and IV, on aggressive protein calorie supplements. Ongoing PT OT 01/20-patient doing well. No overnight events. Sitting in chair eating breakfast. Pleasant and cooperative. No overnight events. Potassium improved to 3.8. Sodium 133 Constitutional Vitals: Vital Signs Temp Pulse Resp BP Pulse Ox 97.8 F 81 18 123/69 100 01/21/20 08:00 01/21/20 08:00 01/21/20 08:00 01/21/20 08:00 01/21/20 08:00 Period Temp Pulse Resp BP Sys/Gray Pulse Ox Last 24 Hr 96.7 F-97.8 F 67-101 - 123-165/69-85 97-100 Intake and Output 01/20/20 01/21/20 01/21/20 21:59 05:59 13:59 Intake Total 1000 250 220 Output Total 200 350 350 Balance 800 -100 -130 Weight 50.53 kg alert and respond to commands Nonlabored breathing No anxiety Intake & Output: Intake & Output 01/20/20 01/21/20 01/21/20 21:59 05:59 13:59 Intake Total 1000 250 220 Output Total 200 350 350 Balance 800 -100 -130 Weight 50.53 kg Intake: IV 1000 Sodium Chloride 0.9% 1,000 ml @ 1000 50 mls/hr IV .Q20H [facility] Rx#: [id number] Oral 250 220 Output: Void Amount 200 350 350 Other: Meal Breakfast Percent of Meal Consumed 50% Feeding Ability Needs Supervision Urine Appearance Clear Urine Color Light Gayatri Dark Yellow # Voids 1 OBJ DATA Labs CBC & Chem 7: 01/21/20 05:02 01/21/20 05:02 Labs: Abnormal Lab Results 01/21/20 01/21/20 01/20/20 05:02 05:02 05:37 WBC POC Hct Plt Count 106 L Gran % Lymph % (Auto) Lymph # (Auto) POC Sodium Sodium 132 L POC Potassium Potassium 2.8 L* POC Chloride Chloride 94 L Carbon Dioxide 21 L Anion Gap BUN POC Glucose POC WB Ioniz Calcium Phosphorus 1.5 L 1.9 L Total Bilirubin 1.7 H 2.0 H Direct Bilirubin 0.5 H 0.6 H GGT 82 H 74 H Urine Protein Urine Ketones Urine Urobilinogen 01/20/20 01/19/20 01/19/20 05:37 17:20 10:39 WBC 4.3 L POC Hct 34.0 L Plt Count 111 L Gran % Lymph % (Auto) Lymph # (Auto) POC Sodium 132 L Sodium POC Potassium 3.0 L Potassium POC Chloride 93 L Chloride Carbon Dioxide Anion Gap BUN POC Glucose 120 H POC WB Ioniz Calcium 1.10 L Phosphorus Total Bilirubin Direct Bilirubin GGT Urine Protein 30 A Urine Ketones 20 A Urine Urobilinogen 4.0 A 01/19/20 01/19/20 10:18 10:18 WBC POC Hct Plt Count 136 L Gran % 78.4 H Lymph % (Auto) 14.1 L Lymph # (Auto) 0.72 L POC Sodium Sodium POC Potassium Potassium 2.7 L* POC Chloride Chloride 89 L Carbon Dioxide Anion Gap 21.0 H BUN 24 H POC Glucose POC WB Ioniz Calcium Phosphorus Total Bilirubin 1.9 H Direct Bilirubin GGT Urine Protein Urine Ketones Urine Urobilinogen Meds: Medications Acetaminophen (Tylenol) 650 mg PO Q4-6HP PRN; Protocol PRN Reason: Per Pain Protocol/Fever > 101 Bisacodyl (Dulcolax) 10 mg [place] Q2-3DAYS PRN PRN Reason: Constipation Cyanocobalamin (Vitamin B-12) 1,000 mcg PO BID [facility] Stop: 01/24/20 09:01 Last Admin: 01/20/20 21:14 Dose: 1,000 mcg Documented by: Docusate Sodium (Colace) 100 mg PO BID [facility] Last Admin: 01/20/20 21:51 Dose: Not Given Documented by: Heparin Sodium (Porcine) (Heparin) 5,000 unit SQ Q12 [facility] Last Admin: 01/20/20 21:14 Dose: 5,000 unit Documented by: Sodium Chloride (Sodium Chloride 0.9%) 1,000 mls @ 50 mls/hr IV .Q20H [facility] Stop: 01/22/20 08:22 Last Admin: 01/20/20 17:13 Dose: 50 mls/hr Documented by: Acetaminophen (Ofirmev) 650 mg in 65 mls @ 130 mls/hr IV Q6HP PRN; Protocol PRN Reason: Per Pain Protocol/Fever > 101 Magnesium Sulfate (Magnesium Sulfate) 2 gm in 50 mls @ 50 mls/hr IV UD PRN PRN Reason: MG = or < 1.7 Potassium Chloride 40 meq/ (Dextrose) 520 mls @ 130 mls/hr IV UD PRN PRN Reason: K+ = or < 3.5 Calcium Gluconate 4.65 meq/ (Dextrose) 60 mls @ 100 mls/hr IV ONCE PRN PRN Reason: CALCIUM = OR < 7.8 Iron Carb/Multivit/[place]/Folic Acid (Multivitamin W/Minerals) 1 tab PO DAILY [facility] Last Admin: 01/20/20 12:24 Dose: Not Given Documented by: Megestrol Acetate (Megace) 40 mg PO DAILY [facility] Melatonin (Melatonin 3mg Tablet) 3 mg PO HSP PRN PRN Reason: Insomnia Last Admin: 01/20/20 21:13 Dose: 3 mg Documented by: Metoprolol Tartrate (Lopressor) 5 mg IV Q5M PRN PRN Reason: Heart Rate > 140 bpm Ondansetron HCl (Zofran Odt) 4 mg SL Q4-6HP PRN; Protocol PRN Reason: Nausea And Vomiting Ondansetron HCl (Zofran) 4 mg IV Q4-6HP PRN; Protocol PRN Reason: Nausea And Vomiting Polyethylene Glycol (Miralax) 17 gm PO DAILYP PRN PRN Reason: Constipation Potassium Chloride (Klor-Con) 40 meq PO DAILYP PRN PRN Reason: K+ < 3.5 Senna/Docusate Sodium (Senna Plus Tablet) 1 tab PO HS [facility] Last Admin: 01/20/20 21:52 Dose: Not Given Documented by: Sodium Chloride (Saline Flush) 10 ml IV Q8 [facility] Last Admin: 01/21/20 05:15 Dose: Not Given Documented by: Thiamine HCl (Vitamin B1) 100 mg PO DAILY [facility] Last Admin: 01/20/20 12:25 Dose: Not Given Documented by: A/P Narrative A/P Narrative: * Hypokalemia continue poor oral intake. Resolved with oral and IV replacement. * Dementia with psychosis, monitoring. Currently stable. Continue frequent reorientation and bright lights and avoiding sedative-hypnotics. Follows up [facility] Summers u[facility] as outpatient. * hypothyroidism continue thyroxine * Failure to thrive/ Falls and weakness, started appetite stimulant, continue dietary intervention/dietitian consult/PT OT eval/possible transfer to SNF * History anxiety depression continue Effexor PLAN * Start appetite stimulants * Protein calorie supplements/dietitian consult * PT/OT * Pre-existing medical condition management as above * Discharge planning per case management possible [facility] facility Time Spent With Patient Time: Total time spent is greater than 50% in coordination of care (as documented) at patient's floor/unit and/or counseling patient: QUALITY VTE Deep Vein Thrombosis/Pulmonary Embolism Present on Admission: No
[2020-01-21] MEDS: CYANOCOBALAMIN (VITAMIN B-12) 500 MCG TABLET PO SCH ×2 (10:42→20:18)
[2020-01-21] MEDS: MULTIVIT,THER IRON,CA,FA & MIN 1 TABLET PO SCH (10:42)
[2020-01-21] MEDS: THIAMINE 100 MG TABLET PO SCH (10:42)
[2020-01-21] MEDS: DOCUSATE SODIUM 100 MG CAPSULE PO SCH ×2 (10:42→20:18)
[2020-01-21] MEDS: HEPARIN 5,000 UNIT/ML VIAL SQ SCH ×2 (10:43→20:18)
[2020-01-21] MEDS: MEGESTROL ACETATE 400 MG/10 ML ORAL.SUSP PO SCH (10:43)
[2020-01-21] MEDS: 0.9 % SODIUM CHLORIDE 1,000 ML IV SCH (13:15)
[2020-01-21] MEDS: SENNOSIDES/DOCUSATE SODIUM 1 TAB TABLET PO SCH (20:18)
[2020-01-21] MEDS: MELATONIN 3 MG TABLET PO PRN (20:18)
[2020-01-22] MEDS: 0.9 % SODIUM CHLORIDE 10 ML SYRINGE IV SCH ×3 (04:54→20:04)
[2020-01-22 06:24] LABS: Hematocrit 32.3 % (34.1-44.9); Hemoglobin 10.9 g/dL (11.2-15.7); Mean Cell Volume 89.5 fL (80.0-100.0); Mean Corpuscular HGB Conc 33.7 g/dL (31.0-36.0); Mean Platelet Volume 10.2 fL (7.4-10.4); Platelet Count 80 K/mcL (140-440); RBC 3.61 M/mcL (3.59-5.38); Red Cell Distribution Width 13.1 % (11.5-14.5); WBC 3.7 K/mcL (4.50-11.00)
[2020-01-22 06:58] LABS: ALT/SGPT 19 U/l (0-40); AST/SGOT 34 U/l (0-37); Albumin 3.4 gm/dL (3.2-5.2); Albumin/Globulin Ratio 1.5 (1.0-2.3); Alkaline Phosphatase 72 U/L (39-117); Bilirubin,Direct 0.4 mg/dL (0.0-0.3); Bilirubin,Total 1.1 mg/dL (0.0-1.0); Blood Urea Nitrogen 11 mg/dl (8-23); Carbon Dioxide 23 mmol/L (22-30); Chloride 104 mmol/L (96-108); Globulin 2.2 gm/dL (2.2-3.7); Glomerular Filtration Rate 75; Glucose 87 mg/dL (70-105); Lactate Dehydrogenase 176 U/L (94-250); Phosphorous 1.9 mg/dL (2.7-4.5); Triglycerides 92 mg/dl (<150); Uric Acid 2.7 mg/dL (2.5-8.0)
[2020-01-22 07:18] LABS: Basophils % (Manual) 1 % (0-2); Eosinophils % (Manual) 2 % (0-7); Lymphocytes % 24 % (15-49); Monocytes % (Manual) 3 % (1-12); Platelet Estimate DECREASED (NORMAL); RBC Morphology NORMAL (NORMAL); Segmented Neutrophils % 70 % (38-78)
[2020-01-22] MEDS: MEGESTROL ACETATE 400 MG/10 ML ORAL.SUSP PO SCH ×2 (10:04→10:19)
[2020-01-22] MEDS: DOCUSATE SODIUM 100 MG CAPSULE PO SCH ×3 (10:05→20:04)
[2020-01-22] MEDS: MULTIVIT,THER IRON,CA,FA & MIN 1 TABLET PO SCH ×2 (10:05→10:19)
[2020-01-22] MEDS: THIAMINE 100 MG TABLET PO SCH ×2 (10:05→10:19)
[2020-01-22] MEDS: HEPARIN 5,000 UNIT/ML VIAL SQ SCH ×3 (10:05→20:04)
[2020-01-22] MEDS: CYANOCOBALAMIN (VITAMIN B-12) 500 MCG TABLET PO SCH ×2 (10:19→20:04)
--- NOTE | 2020-01-22 10:29 | Internal Med Progress Note ---
SUBJECTIVE Subjective Patient information: Note initiated : 01/22/20 at 10:26 am Service Date, if different from initiated Date: [] Patient: Christina Lopez a 70 y/o F admitted on 01/19/20 for Refusing to eat or drink, weakness, confusion. Chief Complaint: [] History of present illness: Ms. Lopez is a 70 year old F with advanced dementia resident of [place] was recently hospitalized with significant electrolyte maladies/acute kidney injury and failure to thrive. She was discharged 2 days after 48-hour hospitalization. Patient now presents to the ER the second time following worsening cognitive lack of appetite, increasing fatigue weakness and malaise and referred for further evaluation. Work-up was consistent with hypokalemia at 2.7 and weakness. Hospital service was consulted in light concerns of decompensation if discharged second time At the time evaluation patient is accompanied with her niece. Patient however was not able to provide any meaningful history. Her niece was able to provide answers to most of the questions. Remaining history was obtained from review of medical records and ER physician. 01/19-patient doing well. No overnight events. No concerns per staff. No fever chills nausea vomiting. Persistent baseline dementia. Ambulating with assistance. Tolerating potassium supplement. Repeat potassium at 2.8 on aggressive replacement including oral and IV, on aggressive protein calorie supplements. Ongoing PT OT 01/20-patient doing well. No overnight events. Sitting in chair eating breakfast. Pleasant and cooperative. No overnight events. Potassium improved to 3.8. Sodium 133 01/21-patient doing well. Ongoing PT OT/nutrition support. Replace electrolytes. Potassium 3.3. Phosphorus 1.9 on replacement. Improving LFTs. Alert and responding to commands. Dementia at baseline. Constitutional Vitals: Vital Signs Temp Pulse Resp BP Pulse Ox 98.1 F 77 14 144/61 98 01/22/20 08:00 01/22/20 08:00 01/22/20 08:00 01/22/20 08:00 01/22/20 08:00 Period Temp Pulse Resp BP Sys/Gray Pulse Ox Last 24 Hr 97.8 F-98.7 F 73-90 14-18 109-144/61-76 97-100 Intake and Output 01/21/20 01/22/20 01/22/20 21:59 05:59 13:59 Intake Total 340 1000 Output Total 400 575 Balance -60 -575 1000 Weight 50.094 kg alert and respond to commands Nonlabored breathing no anxiety Intake & Output: Intake & Output 01/21/20 01/22/20 01/22/20 21:59 05:59 13:59 Intake Total 340 1000 Output Total 400 575 Balance -60 -575 1000 Weight 50.094 kg Intake: IV 1000 Sodium Chloride 0.9% 1,000 ml @ 1000 50 mls/hr IV .Q20H [facility] Rx#: [id number] Oral 340 Output: Void Amount 400 575 Other: Meal Dinner Percent of Meal Consumed 0% Feeding Ability Needs Supervision Urine Appearance Clear Urine Color Straw Urine Odor Normal Normal # Voids 1 OBJ DATA Labs CBC & Chem 7: 01/22/20 04:46 01/22/20 04:46 Labs: Abnormal Lab Results 01/22/20 01/22/20 01/21/20 04:46 04:46 05:02 WBC 3.7 L Hgb 10.9 L Hct 32.3 L POC Hct Plt Count 80 L Gran % Lymph % (Auto) Lymph # (Auto) POC Sodium Sodium POC Potassium Potassium POC Chloride Chloride Carbon Dioxide 21 L Anion Gap BUN POC Glucose POC WB Ioniz Calcium Phosphorus 1.9 L 1.5 L Total Bilirubin 1.1 H 1.7 H Direct Bilirubin 0.4 H 0.5 H GGT 71 H 82 H Total Protein 5.6 L Urine Protein Urine Ketones Urine Urobilinogen 01/21/20 01/20/20 01/20/20 05:02 05:37 05:37 WBC 4.3 L Hgb Hct POC Hct Plt Count 106 L 111 L Gran % Lymph % (Auto) Lymph # (Auto) POC Sodium Sodium 132 L POC Potassium Potassium 2.8 L* POC Chloride Chloride 94 L Carbon Dioxide Anion Gap BUN POC Glucose POC WB Ioniz Calcium Phosphorus 1.9 L Total Bilirubin 2.0 H Direct Bilirubin 0.6 H GGT 74 H Total Protein Urine Protein Urine Ketones Urine Urobilinogen 01/19/20 01/19/20 01/19/20 17:20 10:39 10:18 WBC Hgb Hct POC Hct 34.0 L Plt Count Gran % Lymph % (Auto) Lymph # (Auto) POC Sodium 132 L Sodium POC Potassium 3.0 L Potassium 2.7 L* POC Chloride 93 L Chloride 89 L Carbon Dioxide Anion Gap 21.0 H BUN 24 H POC Glucose 120 H POC WB Ioniz Calcium 1.10 L Phosphorus Total Bilirubin 1.9 H Direct Bilirubin GGT Total Protein Urine Protein 30 A Urine Ketones 20 A Urine Urobilinogen 4.0 A 01/19/20 10:18 WBC Hgb Hct POC Hct Plt Count 136 L Gran % 78.4 H Lymph % (Auto) 14.1 L Lymph # (Auto) 0.72 L POC Sodium Sodium POC Potassium Potassium POC Chloride Chloride Carbon Dioxide Anion Gap BUN POC Glucose POC WB Ioniz Calcium Phosphorus Total Bilirubin Direct Bilirubin GGT Total Protein Urine Protein Urine Ketones Urine Urobilinogen Meds: Medications Acetaminophen (Tylenol) 650 mg PO Q4-6HP PRN; Protocol PRN Reason: Per Pain Protocol/Fever > 101 Bisacodyl (Dulcolax) 10 mg [place] Q2-3DAYS PRN PRN Reason: Constipation Cyanocobalamin (Vitamin B-12) 1,000 mcg PO BID [facility] Stop: 01/24/20 09:01 Last Admin: 01/22/20 10:19 Dose: Not Given Documented by: Docusate Sodium (Colace) 100 mg PO BID [facility] Last Admin: 01/22/20 10:18 Dose: Not Given Documented by: Heparin Sodium (Porcine) (Heparin) 5,000 unit SQ Q12 [facility] Last Admin: 01/22/20 10:11 Dose: Not Given Documented by: Acetaminophen (Ofirmev) 650 mg in 65 mls @ 130 mls/hr IV Q6HP PRN; Protocol PRN Reason: Per Pain Protocol/Fever > 101 Magnesium Sulfate (Magnesium Sulfate) 2 gm in 50 mls @ 50 mls/hr IV UD PRN PRN Reason: MG = or < 1.7 Potassium Chloride 40 meq/ (Dextrose) 520 mls @ 130 mls/hr IV UD PRN PRN Reason: K+ = or < 3.5 Calcium Gluconate 4.65 meq/ (Dextrose) 60 mls @ 100 mls/hr IV ONCE PRN PRN Reason: CALCIUM = OR < 7.8 Iron Carb/Multivit/Tie Maker/Folic Acid (Multivitamin W/Minerals) 1 tab PO DAILY [facility] Last Admin: 01/22/20 10:19 Dose: Not Given Documented by: Megestrol Acetate (Megace) 400 mg PO DAILY [facility] Last Admin: 01/22/20 10:19 Dose: Not Given Documented by: Melatonin (Melatonin 3mg Tablet) 3 mg PO HSP PRN PRN Reason: Insomnia Last Admin: 01/21/20 20:18 Dose: 3 mg Documented by: Metoprolol Tartrate (Lopressor) 5 mg IV Q5M PRN PRN Reason: Heart Rate > 140 bpm Ondansetron HCl (Zofran Odt) 4 mg SL Q4-6HP PRN; Protocol PRN Reason: Nausea And Vomiting Ondansetron HCl (Zofran) 4 mg IV Q4-6HP PRN; Protocol PRN Reason: Nausea And Vomiting Polyethylene Glycol (Miralax) 17 gm PO DAILYP PRN PRN Reason: Constipation Potassium Chloride (Klor-Con) 40 meq PO DAILYP PRN PRN Reason: K+ < 3.5 Senna/Docusate Sodium (Senna Plus Tablet) 1 tab PO HS [facility] Last Admin: 01/21/20 20:18 Dose: 1 tab Documented by: Sodium Chloride (Saline Flush) 10 ml IV Q8 [facility] Last Admin: 01/22/20 04:54 Dose: Not Given Documented by: Thiamine HCl (Vitamin B1) 100 mg PO DAILY [facility] Last Admin: 01/22/20 10:19 Dose: Not Given Documented by: A/P Narrative A/P Narrative: * Hypokalemia -continue oral replacement * Low phosphorus on replacement * Dementia with psychosis, monitoring. Currently stable. Continue frequent reorientation and bright lights and avoiding sedative-hypnotics. Follows up [facility] as outpatient. * hypothyroidism continue thyroxine * Failure to thrive/ Falls and weakness, continue appetite stimulant, dietary intervention/PT OT eval/anticipate transfer to SNF * History anxiety depression continue Effexor PLAN * Continue appetite stimulants/protein calorie supplements * PT/OT * Pre-existing medical condition management as above * Discharge planning per case management -likely SNF Time Spent With Patient Time: Total time spent is greater than 50% in coordination of care (as document ed) at patient's floor/unit and/or counseling patient: QUALITY VTE Deep Vein Thrombosis/Pulmonary Embolism Present on Admission: No
[2020-01-22] MEDS ORDERED: POTASSIUM PHOSPHATE 40 MEQ in DEXTROSE 5% IN WATER 500 ML IV ONE (11:54)
[2020-01-22] MEDS: SENNOSIDES/DOCUSATE SODIUM 1 TAB TABLET PO SCH (20:04)
[2020-01-22] MEDS: MELATONIN 3 MG TABLET PO PRN (20:04)
[2020-01-23] MEDS: 0.9 % SODIUM CHLORIDE 10 ML SYRINGE IV SCH ×4 (04:42→20:47)
[2020-01-23 06:45] LABS: Hematocrit 32.2 % (34.1-44.9); Hemoglobin 11.1 g/dL (11.2-15.7); Mean Cell Volume 87.7 fL (80.0-100.0); Mean Corpuscular HGB Conc 34.5 g/dL (31.0-36.0); Mean Platelet Volume 10.4 fL (7.4-10.4); Platelet Count 86 K/mcL (140-440); RBC 3.67 M/mcL (3.59-5.38); Red Cell Distribution Width 13.2 % (11.5-14.5); WBC 3.6 K/mcL (4.50-11.00)
[2020-01-23 07:12] LABS: ALT/SGPT 20 U/l (0-40); AST/SGOT 31 U/l (0-37); Albumin 3.6 gm/dL (3.2-5.2); Albumin/Globulin Ratio 1.8 (1.0-2.3); Alkaline Phosphatase 73 U/L (39-117); Bilirubin,Direct 0.4 mg/dL (0.0-0.3); Blood Urea Nitrogen 8 mg/dl (8-23); Calcium 9.2 mg/dl (8.6-10.4); Carbon Dioxide 24 mmol/L (22-30); Chloride 103 mmol/L (96-108); Glomerular Filtration Rate 88; Glucose 85 mg/dL (70-105); Lactate Dehydrogenase 177 U/L (94-250); Triglycerides 109 mg/dl (<150); Uric Acid 2.5 mg/dL (2.5-8.0)
[2020-01-23 07:13] LABS: Phosphorous 3.3 mg/dL (2.7-4.5)
[2020-01-23 08:14] LABS: Band Neutrophils % 1 % (0-10); Eosinophils % (Manual) 1 % (0-7); Lymphocytes % 35 % (15-49); Monocytes % (Manual) 5 % (1-12); Platelet Estimate DECREASED (NORMAL); RBC Morphology NORMAL (NORMAL); Segmented Neutrophils % 58 % (38-78)
[2020-01-23] MEDS: HEPARIN 5,000 UNIT/ML VIAL SQ SCH ×2 (09:36→19:06)
--- NOTE | 2020-01-23 10:06 | Discharge Summary ---
Discharge Provider Provider Patient information: Note initiated : 01/24/20 at 9:03 am Service Date, if different from initiated Date: [] Patient: Christina Lopez a 70 y/o F admitted on 01/19/20 for Refusing to eat or drink, weakness, confusion. Discharge diagnosis * Hypokalemia -clinically resolved with oral replacement * Low phosphorus resolved with replacement * Dementia with psychosis, monitoring. Currently stable. Follows up with Dr. Summers neurology as outpatient. Transitioning to assisted care with home hospice * hypothyroidism managed on home dose thyroxine * Failure to thrive/ Falls and weakness, continue appetite stimulant, dietary intervention/PT OT eval * History anxiety depression continue Effexor Brief hospital course History of present illness: Ms. Lopez is a 70 year old F with advanced dementia resident of [place] was recently hospitalized with significant electrolyte maladies/acute kidney injury and failure to thrive. She was discharged 2 days after 48-hour hospitalization. Patient now presents to the ER the second time following worsening cognitive lack of appetite, increasing fatigue weakness and malaise and referred for further evaluation. Work-up was consistent with hypokalemia at 2.7 and weakness. Hospital service was consulted in light concerns of decompensation if discharged second time At the time evaluation patient is accompanied with her niece. Patient however was not able to provide any meaningful history. Her niece was able to provide answers to most of the questions. Remaining history was obtained from review of medical records and ER physician. 01/19-patient doing well. No overnight events. No concerns per staff. No fever chills nausea vomiting. Persistent baseline dementia. Ambulating with assistance. Tolerating potassium supplement. Repeat potassium at 2.8 on aggres sive replacement including oral and IV, on aggressive protein calorie supplements. Ongoing PT OT 01/20-patient doing well. No overnight events. Sitting in chair eating breakfast. Pleasant and cooperative. No overnight events. Potassium improved to 3.8. Sodium 133 01/21-patient doing well. Ongoing PT OT/nutrition support. Replace electrolytes. Potassium 3.3. Phosphorus 1.9 on replacement. Improving LFTs. Alert and responding to commands. Dementia at baseline. 01/22-patient doing well. No overnight events. No concerns per staff. No fever chills nausea vomiting. Mentation at baseline. Is improved. Case management coordinating transfer to facility 01/23-discharging today to [place] with hospice Date of admission: 01/19/20 20:06 Discharge date: 01/23/20 Primary care physician: Axel Rosado Consults: 01/19/20 17:45 Consult to Physician [CONS] Stat Comment: Consulting Provider: Enrique Hernandez Reason For Exam: Physician to Consult Discharge Meds Discharge Medications Home Medications acetaminophen [Tylenol Extra Strength] 1,000 mg PO Q4HP PRN 12/25/19 [History Confirmed 01/19/20 Last Taken Unknown] levothyroxine 75 mcg PO DAILY 12/25/19 [History Confirmed 01/19/20 Last Taken 01/19/20 07:00] loperamide 2 mg PO PRN PRN 12/25/19 [History Confirmed 01/20/20 Last Taken Unknown] loratadine 10 mg PO DAILY PRN 12/25/19 [History Confirmed 01/19/20 Last Taken Unknown] memantine 10 mg PO BID 12/25/19 [History Confirmed 01/19/20 Last Taken 01/19/20 08:00] mirtazapine 15 mg PO HS 12/25/19 [History Confirmed 01/19/20 Last Taken 01/18/20] venlafaxine 225 mg PO DAILY 12/25/19 [History Confirmed 01/19/20 Last Taken 01/19/20 07:00] dronabinol [Marinol] 2.5 mg PO QHS #14 cap 01/24/20 [Rx Last Taken Unknown] COURSE Hospital Course Hospital course: . Discharge diagnosis: / Time Spent with Patient Time attestation: Total time spent providing and/or coordinating discharge services: EXAM Constitutional Vitals: Temp Pulse Resp BP Pulse Ox 98.3 F 83 16 118/61 99 01/23/20 07:10 01/23/20 07:10 01/23/20 07:10 01/23/20 07:10 01/23/20 07:10 Discharge Data Data Completed and Pending Labs on day of discharge: Labs from last 24 hours 01/23/20 01/23/20 04:55 04:55 WBC 3.6 L RBC 3.67 Hgb 11.1 L Hct 32.2 L MCV 87.7 MCH 30.2 MCHC 34.5 RDW 13.2 Plt Count 86 L MPV 10.4 Total Counted 100 Seg Neutrophils % 58 Band Neutrophils % 1 Lymphocytes % 35 Monocytes % (Manual) 5 Eosinophils % (Manual) 1 Platelet Estimate Decreased RBC Morphology Normal Sodium 141 Potassium 3.6 Chloride 103 Carbon Dioxide 24 Anion Gap 14.0 BUN 8 Creatinine 0.7 GFR Calculation 88 Glucose 85 Uric Acid 2.5 Calcium 9.2 Phosphorus 3.3 Magnesium 1.6 Total Bilirubin 1.0 Direct Bilirubin 0.4 H GGT 69 H AST 31 ALT 20 Alkaline Phosphatase 73 Lactate Dehydrogenase 177 Total Protein 5.6 L Albumin 3.6 Globulin 2.0 L Albumin/Globulin Ratio 1.8 Triglycerides 109 Discharge Plan Patient/Caregiver Discharge Instructions Activity: increase activity as tolerated Diet: Regular Diet Instructions: Hypokalemia (DC), Dementia (GEN) Activity Restrictions/Additional Instructions: Resume home diet as tolerated. Take all meals up in chair sitting at 90 degrees. Increase activity as tolerated. Continue fall precautions. Continue aggressive bowel regimen to prevent constipation. Take all medication as directed. Your prescription is with your discharge paperwork. Follow-up with Axel Rosado as needed. [phone] Follow up with [facility] wound clinic if wound on ear opens. [phone] Prescriptions: New dronabinol [Marinol] 2.5 mg capsule 2.5 mg PO QHS Qty: 14 RF: 0 Continued mirtazapine 15 mg tablet 15 mg PO HS RF: 0 loperamide 2 mg Tablet 2 mg PO PRN PRN (Reason: Diarrhea) RF: 0 acetaminophen [Tylenol Extra Strength] 500 mg Tablet 1,000 mg PO Q4HP PRN (Reason: Pain, Moderate) RF: 0 levothyroxine 75 mcg tablet 75 mcg PO DAILY RF: 0 loratadine 10 mg Tablet 10 mg PO DAILY PRN (Reason: Allergy Symptoms) RF: 0 memantine 10 mg tablet 10 mg PO BID RF: 0 venlafaxine 75 mg Capsule,Extended Release 24hr 225 mg PO DAILY RF: 0 Discontinued dronabinol [Marinol] 2.5 mg Capsule 2.5 mg PO BID RF: 0 Follow Up Plan Follow up with: Dick Joyce MD [Physician] - (follow up at wound healing center if left ear develops open wound or does not heal in 2 weeks.) Axel Rosado DO [Primary Care Provider] - Patient Disposition: Hospice - Home Prognosis: Fair Rehab Potential: Fair I certify that the patient requires SNF services: No Discharge Orders: Discharge Order (Routine); Ordered 01/24/20 Ordered By: Enrique ROMANO VTE Deep Vein Thrombosis/Pulmonary Embolism Present on Admission: No
[2020-01-23] MEDS: MEGESTROL ACETATE 400 MG/10 ML ORAL.SUSP PO SCH (10:13)
[2020-01-23] MEDS: DOCUSATE SODIUM 100 MG CAPSULE PO SCH ×2 (10:14→19:06)
[2020-01-23] MEDS: MULTIVIT,THER IRON,CA,FA & MIN 1 TABLET PO SCH (10:14)
[2020-01-23] MEDS: CYANOCOBALAMIN (VITAMIN B-12) 500 MCG TABLET PO SCH ×2 (10:14→19:06)
[2020-01-23] MEDS: THIAMINE 100 MG TABLET PO SCH (10:14)
--- NOTE | 2020-01-23 17:48 | Internal Med Progress Note ---
SUBJECTIVE Subjective Patient information: Note initiated : 01/23/20 at 5:45 pm Service Date, if different from initiated Date: [] Patient: Christina Lopez a 70 y/o F admitted on 01/19/20 for Refusing to eat or drink, weakness, confusion. Chief Complaint: [] History of present illness: Ms. Lopez is a 70 year old F with advanced dementia resident of [place] was recently hospitalized with significant electrolyte maladies/acute kidney injury and failure to thrive. She was discharged 2 days after 48-hour hospitalization. Patient now presents to the ER the second time following worsening cognitive lack of appetite, increasing fatigue weakness and malaise and referred for further evaluation. Work-up was consistent with hypokalemia at 2.7 and weakness. Hospital service was consulted in light concerns of decompensation if discharged second time At the time evaluation patient is accompanied with her niece. Patient however was not able to provide any meaningful history. Her niece was able to provide answers to most of the questions. Remaining history was obtained from review of medical records and ER physician. 01/19-patient doing well. No overnight events. No concerns per staff. No fever chills nausea vomiting. Persistent baseline dementia. Ambulating with assistance. Tolerating potassium supplement. Repeat potassium at 2.8 on aggressive replacement including oral and IV, on aggressive protein calorie supplements. Ongoing PT OT 01/20-patient doing well. No overnight events. Sitting in chair eating breakfast. Pleasant and cooperative. No overnight events. Potassium improved to 3.8. Sodium 133 01/21-patient doing well. Ongoing PT OT/nutrition support. Replace electrolytes. Potassium 3.3. Phosphorus 1.9 on replacement. Improving LFTs. Alert and responding to commands. Dementia at baseline. 01/22-patient doing well. No overnight events. Discharge delayed as no facility available. Hospice consult initiated. Patient will likely discharge in 24 hour s. Case management coordinating. Tolerating diet. Mentation at baseline. Constitutional Vitals: Vital Signs Temp Pulse Resp BP Pulse Ox 98.7 F 110 H 17 107/60 98 01/23/20 15:37 01/23/20 15:37 01/23/20 15:37 01/23/20 15:37 01/23/20 15:37 Period Temp Pulse Resp BP Sys/Gray Pulse Ox Last 24 Hr 97.2 F-98.7 F 75-110 16-17 100-118/60-74 96-99 Intake and Output 01/23/20 01/23/20 01/23/20 05:59 13:59 21:59 Intake Total 759.0909 240 60 Output Total 850 550 Balance -90.9091 -310 60 Alert and responding Nonlabored breathing No anxiety Intake & Output: Intake & Output 01/23/20 01/23/20 01/23/20 05:59 13:59 21:59 Intake Total 759.0909 240 60 Output Total 850 550 Balance -90.9091 -310 60 Intake: Nourishment/Supplement quantity 60 (ml) IV 509.0909 Potassium Phosphate 40 Meq In 509.0909 Dextrose 5% in Water 500 ml @ 127.273 mls/hr IV ONCE ONE Rx#: [id number] Oral 250 180 60 Output: Void Amount 850 550 Other: Meal Breakfast Percent of Meal Consumed 25% Feeding Ability Assist with Tray Set Up Nourishment/Supplement name ensure Urine Appearance Clear Clear Urine Color Bright Yellow Dark Yellow Stool Size Smear OBJ DATA Labs CBC & Chem 7: 01/23/20 04:55 01/23/20 04:55 Labs: Abnormal Lab Results 01/23/20 01/23/20 01/22/20 04:55 04:55 04:46 WBC 3.6 L Hgb 11.1 L Hct 32.2 L Plt Count 86 L Carbon Dioxide Phosphorus 1.9 L Total Bilirubin 1.1 H Direct Bilirubin 0.4 H 0.4 H GGT 69 H 71 H Total Protein 5.6 L 5.6 L Globulin 2.0 L 01/22/20 01/21/20 01/21/20 04:46 05:02 05:02 WBC 3.7 L Hgb 10.9 L Hct 32.3 L Plt Count 80 L 106 L Carbon Dioxide 21 L Phosphorus 1.5 L Total Bilirubin 1.7 H Direct Bilirubin 0.5 H GGT 82 H Total Protein Globulin Meds: Medications Acetaminophen (Tylenol) 650 mg PO Q4-6HP PRN; Protocol PRN Reason: Per Pain Protocol/Fever > 101 Bisacodyl (Dulcolax) 10 mg CA Q2-3DAYS PRN PRN Reason: Constipation Cyanocobalamin (Vitamin B-12) 1,000 mcg PO BID NERIS Stop: 01/24/20 09:01 Last Admin: 01/23/20 10:14 Dose: 1,000 mcg Documented by: Docusate Sodium (Colace) 100 mg PO BID REPLACED BY [facility] Last Admin: 01/23/20 10:14 Dose: 100 mg Documented by: Heparin Sodium (Porcine) (Heparin) 5,000 unit SQ Q12 REPLACED BY [facility] Last Admin: 01/23/20 09:36 Dose: Not Given Documented by: Acetaminophen (Ofirmev) 650 mg in 65 mls @ 130 mls/hr IV Q6HP PRN; Protocol PRN Reason: Per Pain Protocol/Fever > 101 Magnesium Sulfate (Magnesium Sulfate) 2 gm in 50 mls @ 50 mls/hr IV UD PRN PRN Reason: MG = or < 1.7 Last Admin: 01/23/20 10:44 Dose: 50 mls/hr Documented by: Potassium Chloride 40 meq/ (Dextrose) 520 mls @ 130 mls/hr IV UD PRN PRN Reason: K+ = or < 3.5 Calcium Gluconate 4.65 meq/ (Dextrose) 60 mls @ 100 mls/hr IV ONCE PRN PRN Reason: CALCIUM = OR < 7.8 Iron Carb/Multivit/Wall[employer]pper/Folic Acid (Multivitamin W/Minerals) 1 tab PO DAILY REPLACED BY [facility] Last Admin: 01/23/20 10:14 Dose: 1 tab Documented by: Megestrol Acetate (Megace) 400 mg PO DAILY REPLACED BY [facility] Last Admin: 01/23/20 10:13 Dose: 400 mg Documented by: Melatonin (Melatonin 3mg Tablet) 3 mg PO HSP PRN PRN Reason: Insomnia Last Admin: 01/22/20 20:04 Dose: 3 mg Documented by: Metoprolol Tartrate (Lopressor) 5 mg IV Q5M PRN PRN Reason: Heart Rate > 140 bpm Ondansetron HCl (Zofran Odt) 4 mg SL Q4-6HP PRN; Protocol PRN Reason: Nausea And Vomiting Ondansetron HCl (Zofran) 4 mg IV Q4-6HP PRN; Protocol PRN Reason: Nausea And Vomiting Polyethylene Glycol (Miralax) 17 gm PO DAILYP PRN PRN Reason: Constipation Potassium Chloride (Klor-Con) 40 meq PO DAILYP PRN PRN Reason: K+ < 3.5 Senna/Docusate Sodium (Senna Plus Tablet) 1 tab PO HS REPLACED BY [facility] Last Admin: 01/22/20 20:04 Dose: 1 tab Documented by: Sodium Chloride (Saline Flush) 10 ml IV Q8 REPLACED BY [facility] Last Admin: 01/23/20 16:39 Dose: Not Given Documented by: Thiamine HCl (Vitamin B1) 100 mg PO DAILY REPLACED BY [facility] Last Admin: 01/23/20 10:14 Dose: 100 mg Documented by: A/P Narrative A/P Narrative: * Dementia with psychosis, monitoring. Currently stable. Await transfer to facility. Family wishes to initiate hospice. Follows up with Dr. Summers urology as outpatient. * Hypokalemia -resolved with replacement * Low phosphorus -resolved with replacement * hypothyroidism continue thyroxine * Failure to thrive/ Falls and weakness, continue appetite stimulant, dietary intervention/PT OT eval/anticipate transfer to SNF * History anxiety depression continue Effexor PLAN * Continue appetite stimulants/protein calorie supplements * Therapies as tolerated * Initiate hospice consult * Pre-existing medical condition management as above * Case management coordinate SNF transfer Time Spent With Patient Time: Total time spent is greater than 50% in coordination of care (as documented) at patient's floor/unit and/or counseling patient: QUALITY VTE Deep Vein Thrombosis/Pulmonary Embolism Present on Admission: No
[2020-01-23] MEDS: SENNOSIDES/DOCUSATE SODIUM 1 TAB TABLET PO SCH (19:06)
[2020-01-23] MEDS: MELATONIN 3 MG TABLET PO PRN (19:06)
[2020-01-24 06:21] LABS: Hematocrit 31.4 % (34.1-44.9); Hemoglobin 10.9 g/dL (11.2-15.7); Mean Cell Volume 86.5 fL (80.0-100.0); Mean Corpuscular HGB Conc 34.7 g/dL (31.0-36.0); Mean Platelet Volume 10.4 fL (7.4-10.4); Platelet Count 91 K/mcL (140-440); RBC 3.63 M/mcL (3.59-5.38); Red Cell Distribution Width 13.2 % (11.5-14.5); WBC 4.7 K/mcL (4.50-11.00)
[2020-01-24 06:48] LABS: ALT/SGPT 20 U/l (0-40); AST/SGOT 28 U/l (0-37); Albumin 3.4 gm/dL (3.2-5.2); Albumin/Globulin Ratio 1.5 (1.0-2.3); Alkaline Phosphatase 70 U/L (39-117); Bilirubin,Direct 0.3 mg/dL (0.0-0.3); Blood Urea Nitrogen 10 mg/dl (8-23); Carbon Dioxide 25 mmol/L (22-30); Chloride 102 mmol/L (96-108); Globulin 2.2 gm/dL (2.2-3.7); Glomerular Filtration Rate 75; Glucose 102 mg/dL (70-105); Lactate Dehydrogenase 172 U/L (94-250); Triglycerides 94 mg/dl (<150); Uric Acid 2.6 mg/dL (2.5-8.0)
[2020-01-24 07:26] LABS: Band Neutrophils % 3 % (0-10); Basophils % (Manual) 1 % (0-2); Eosinophils % (Manual) 1 % (0-7); Lymphocytes % 37 % (15-49); Monocytes % (Manual) 5 % (1-12); Platelet Estimate DECREASED (NORMAL); RBC Morphology NORMAL (NORMAL); Reactive Lymphocytes 2 % (0-2); Segmented Neutrophils % 51 % (38-78)
[2020-01-24] MEDS ORDERED: LEVOTHYROXINE 75 MCG TABLET PO SCH (07:30)
[2020-01-24] MEDS: MEGESTROL ACETATE 400 MG/10 ML ORAL.SUSP PO SCH (08:23)
[2020-01-24] MEDS: DOCUSATE SODIUM 100 MG CAPSULE PO SCH (08:23)
[2020-01-24] MEDS: 0.9 % SODIUM CHLORIDE 10 ML SYRINGE IV SCH (08:23)
[2020-01-24] MEDS: THIAMINE 100 MG TABLET PO SCH (08:29)
[2020-01-24] MEDS ORDERED: POTASSIUM CHLORIDE 20 MEQ TABLET PO ONE (08:46)
[2020-01-24] MEDS: CYANOCOBALAMIN (VITAMIN B-12) 500 MCG TABLET PO SCH (11:34)
[2020-01-24] MEDS: MULTIVIT,THER IRON,CA,FA & MIN 1 TABLET PO SCH (11:34)
== END 2020-01-24 12:28 | disposition hospice, home (50) | DRG 641 ==
LOC: ED 09:35 → MEDSUR 20:03
PROVIDERS: ADMIT Internal Medicine; ATTEND Internal Medicine